=== PATIENT | female | born 1945 | race Caucasian/White ===

== ENCOUNTER 2016-05-04 22:56 | Inpatient (IN) | payer MEDICARE, OTHER ==
[~2016-05-04] VITALS: Ht 170.2 cm; Wt 84.7 kg
[2016-05-04 23:09] VITALS: BP 105/59; PULSE 94; RESP 18; O2SAT 97
[2016-05-05] VITALS (11 sets, daily range): BP systolic 89–112; BP diastolic 52–61; PULSE 78–102; RESP 16–19; O2SAT 90–98
--- NOTE | 2016-05-05 00:30 | ED.REPORT ---
HPI-General Illness Date of Service May 05, 2016 ED Provider: Skip Crowe MD The patient is a 70 year old female who presents to the ED complaining of an episode of shortness of breath which lasted 1.5 hours. Upon arrival to the ED, her shortness of breath has resolved. She states that two days ago she was carrying grocery bags when she felt pain in her left shoulder and neck which she believes may be related. She has a history of shoulder/neck pain and shoulder dislocation. She has no history of laryngospasm. Associated symptom of fatigue. She has family history of CAD and blood clots. She denies any other symptoms at this time. Nursing Notes Stated Complaint: NECK & SHOULDER PAIN Chief Complaint: General Complaint Nursing Notes Reviewed: Yes Allergies: Coded Allergies: Honey Bee (Verified Allergy, Unknown, 05/04/16) codeine (Verified Allergy, Unknown, 05/04/16) pollen extracts (Unverified Allergy, Unknown, 05/04/16) General Time Seen by MD: 00:18 Chief Complaint Other (shortness of breath) Hx Obtained From: Patient, Daughter Arrived By: Walk-in Sudden in Onset?: Yes Onset Occurred: 1 - 4 hours ago Symptom Duration: 1 - 4 hours Location: : Neck: Shoulder left Quality: Painful Severity: Current: Mild Severity: Maximum: Moderate Recent Healthcare: No recent doctor visit, No recent hospitalization Similar Sx Previous: No Past Medical History Past Medical History None reported Past Surgical History None reported Family History CAD Smoking History Never Smoker Social History Alcohol Use: Denies alcohol use Drug Use: Denies drug use Ambulatory Status Independent Review of Systems Full Review of Systems Constitutional: Reports: Fatigue, Denies: Chills, Fever Respiratory: Reports: Shortness of breath (resolved) Musculoskeletal: Reports: Joint pain (left shoulder), Neck pain, Denies: Back pain, Lumbar pain Complete sys rev & neg: except as marked. Physical Exam Vital Signs Vital Signs Date Time Temp Pulse Resp B/P Pulse Ox O2 Delivery O2 Flow Rate FiO2 05/05/16 05:11 78 17 95 Nasal Cannula 1.5 05/05/16 04:53 85 19 95 Room Air 05/05/16 03:51 89 17 112/54 94 Room Air 05/04/16 23:09 36.1 94 18 105/59 97 Room Air Initial VS: Reviewed, Vital signs normal Head / Eyes: Atraumatic, Normocephalic, PERRL ENT: Mucous membranes moist, Conjunctiva normal, No scleral icterus Neck: Supple, Non-tender, Full range of motion Respiratory: Breath sounds normal, Clear to auscultation, No respiratory distress Cardiovascular: Regular rate & rhythm, Heart sounds normal, Intact distal pulses Abdomen / GI: Soft, Non-tender, No guarding, No rebound, No distention Back: No CVA tenderness Skin: Warm, Dry, No cyanosis Neurologic: Alert, Oriented, Nonfocal Psychiatric: Mood/affect normal, Behavior normal, Normal thought content General/Constitutional: Awake, Alert, No acute distress Upper Extremities Upper Extremity / MS: Atraumatic Left biceps tendon and shoulder tender to palpation/manipulation Right shoulder non-tender, atraumatic Lower Extremity / Pelvis / MS: Atraumatic, Inspection NL, Full range of motion , No swelling, Non-tender, No erythema, Neurologic intact, Vascular intact Interpretation & Diagnostics Lab Results Interpretation Result Diagram: 05/05/16 0123 05/05/16 0123 Test 05/05/16 01:23 White Blood Count 9.0th/mm3 (3.8-10.1) Red Blood Count 2.92mil/mm3 (3.90-5.20) Hemoglobin 8.9g/dL (12.0-15.6) Hematocrit 26.5% (35.0-46.0) Mean Corpuscular Volume 90.8fL (81-100) Mean Corpuscular Hemoglobin 30.5pg (27.0-35.0) Mean Corpuscular Hemoglobin Concent 33.6% (32.0-37.0) Red Cell Distribution Width 12.8% (12.3-15.4) Platelet Count 209bil/L (150-400) Neutrophils (%) (Auto) 66.1% (40-74) Lymphocytes (%) (Auto) 25.6% (14-46) Monocytes (%) (Auto) 7.4% (4-12) Eosinophils (%) (Auto) 0.4% (0-5) Basophils (%) (Auto) 0.3% (0-3) D-Dimer 0.8mg/L (<0.50) Sodium Level 126mEq/L (134-144) Potassium Level 4.5mEq/L (3.5-5.2) Chloride Level 92mEq/L (97-108) Carbon Dioxide Level 19mmol/L (18-29) Blood Urea Nitrogen 15mg/dL (8-27) Creatinine 0.50mg/dL (0.57-1.00) Estimat Glomerular Filtration Rate 175mL/min (>59) Glucose Level 110mg/dL (60-99) Calcium Level 8.6mg/dL (8.5-10.1) Magnesium Level 1.8mg/dL (1.6-2.6) Total Bilirubin 0.2mg/dL (0.0-1.2) Aspartate Amino Transf (AST/SGOT) 19U/L (0-50) Alanine Aminotransferase (ALT/SGPT) 14U/L (0-32) Alkaline Phosphatase 81U/L (25-165) Troponin T 0.010ug/L (0.0-0.011) Total Protein 6.0g/dL (6.4-8.4) Albumin 3.5g/dL (3.4-5.0) Hold Herman Top Tube Received (Received) Lab Results Interpretation: Anemia of uncertain etiology, no comparison available ECG Interpretation ECG Interpretation: Sius rhythm with rate 88 Borderline prolonged [place] interbal LVH with secondary repolarization abnormality Inferior infarct, old Probably anterior infarct, old Time: 23:33 Interpreted by: ED physician X-Ray Chest Interpretation Chest Xray Interpretation: Likely multifocal pneumonia View: AP & lat Interpretation / Wet Read by: Wet read ED physician X-Ray Interpretation Xray Interpretation: Some osteoporosis, otherwise normal X-Ray Ordered: Shoulder left Interpretation / Wet Read by: Wet read ED physician CT Chest Interpretation IMPRESSION: No pulmonary emboli identified. No aorta dissection evident. Focal pulmonary opacity at the left upper lobe/lingula junction. This could represent neoplasm or focal pneumonia and followup is recommended. Parabronchial thickening with endobronchial occlusion/chronic predominantly lower lobes. This is likely secondary to bronchitis. Endobronchial neoplasm not excluded. Findings suggesting congestive heart failure with mild pulmonary edema. Study type: CT pulm angiogram Interpretation / Wet Read by: Interpret - Radiologist Re-Eval/Medical Decision Med Decision/Clinical Course 70-year-old female with shortness of breath found to have left-sided pneumonia and possible mild CHF. There is also some concern on the CT scan for neoplastic process. She was given azithromycin and Rocephin. She had some desaturations down as low as 89%. She is also found to be anemic with a hematocrit of 26.5. I have no old value for comparison. Case was discussed with Dr. Quinteros the patient will be placed on the hospitalist service. Source of Hx: Old records Time of Eval: 01:11 Re-Evaluation/Progress Note: Rechecked the patient who reports that she has started feeling better. Discussed imaging results. Time of Eval: 03:17 Re-Evaluation/Progress Note: Rechecked the patient to discuss lab results. The patient denies history of anemia. Discussed elevated D-Dimer and plan to CT her chest to rule out PE. The patient understands and agrees to the plan. All questions addressed. Time of Eval: 06:04 Re-Evaluation/Progress Note: Rechecked the patient. Discussed diagnosis and plan for discharge. Follow-up instructions and RTER warnings given. The patient understands and agrees to the plan. All questions addressed. Counseled Regarding: Diagnosis, Lab results, Need for admission, Other (imaging ) Discharge & Departure Primary Impression: Pneumonia Pneumonia type: due to unspecified organism Laterality: left Lung location : unspecified part of lung Qualified Code: J18.9 - Pneumonia, unspecified organism Additional Impression: CHF (congestive heart failure) Congestive heart failure type: unspecified congestive heart failure type Congestive heart failure chronicity: unspecified congestive heart failure chronicity Qualified Code: I50.9 - Heart failure, unspecified Disposition: Home Discharge Condition All VS Reviewed: Yes Condition: Stable Referrals: Laney Barrett (PCP) Pawan Attestation Portions of this note were transcribed by Allan Arroyo. I, Dr. Crowe, personally performed the history, physical exam and medical decision-making; I reviewed and confirmed the accuracy of the information in the transcribed note. Signed by: Pawan Hyatt, 05/05/16 06:04. copies to: Laney Barrett Howard L MD May 05, 2016 00:30 ALLAN ARROYO May 05, 2016 00:35
[2016-05-05] MEDS ORDERED: 0.9% Sodium Chloride 1,000 ML IV ONE (01:13)
[2016-05-05] MEDS ORDERED: Azithromycin Inj 500 MG in Dextrose 5% w/Vial Mate 250 ML IV ONE (01:15)
[2016-05-05] MEDS ORDERED: cefTRIAXone Inj 2,000 MG in IV Premix 1 EACH IV ONE (01:15)
[2016-05-05 01:33] LABS: BASOPHILS % (AUTO) 0.3 % (0-3); EOSINOPHILS % (AUTO) 0.4 % (0-5); MONOCYTES % (AUTO) 7.4 % (4-12); Mean Corpuscular Hemoglobin 30.5 pg (27.0-35.0); Mean Corpuscular Volume 90.8 fL (81-100); NEUTROPHILS % (AUTO) 66.1 % (40-74); Platelet Count 209 bil/L (150-400)
[2016-05-05 02:51] LABS: TROPONIN T 0.01 ug/L (0.0-0.011)
[2016-05-05 02:56] LABS: Magnesium 1.8 mg/dL (1.6-2.6)
[2016-05-05] MEDS ORDERED: Albuterol-Ipratropium 3 mL Inhalation Solution NEB ONE (04:45)
[2016-05-05] MEDS ORDERED: Albuterol 2.5 mg/3 mL Inhalation Solution NEB ONE ×2 (05:04→05:05)
[2016-05-05] MEDS ORDERED: Dextrose 5% 0.45% NaCl 1,000 ML IV SCH (06:32)
[2016-05-05] MEDS ORDERED: Alum-Mag Hydrox-Simeth 30 mL Suspension PO PRN ×2 (06:35→10:25)
[2016-05-05] MEDS ORDERED: Ondansetron 2 mg/mL 2 mL Inj IVPUSH PRN (06:35)
[2016-05-05] MEDS ORDERED: LEVO25TA5 PO (08:05)
[2016-05-05] MEDS ORDERED: ASCO-375 PO (08:24)
[2016-05-05] MEDS ORDERED: PRA20 PO (08:24)
[2016-05-05] MEDS ORDERED: MULT-1018 PO (08:24)
[2016-05-05] MEDS ORDERED: WHEA98PO PO (08:24)
--- NOTE | 2016-05-05 08:34 | DRSVH ---
PROCEDURE: X-RAY CHEST, TWO VIEWS ([id number]) INDICATIONS: SOB TECHNIQUE: 2 views of the chest were acquired. COMPARISON: [facility], , CHEST 2VW, 12/06/2011, 16:09. FINDINGS: Surgical changes and devices: None. Lungs and pleura: Prominent increased interstitial markings are present with prominent vasculature an d missy. Mild thickening of the major fissure is present in the lateral view of the chest. Mediastinum: Mediastinal contours are normal. Heart size is normal. Bones and chest wall: No suspicious bony abnormalities. Soft tissues appear unremarkable. IMPRESSION: Early interstitial pulmonary edema is thought to be present. No focal consolidation mila red to previous films of 12/06/11. Slightly prominent area of markings at the level of left hilum but in the left midlung field are thought to be unchanged dental x-rays. Dictated by: Jack Rene M.D. on 05/05/2016 at 8:32 Approved by: Jack Rene M.D. on 05/05/2016 at 8:32
--- NOTE | 2016-05-05 08:34 | DRSVH ---
PROCEDURE: X-RAY LEFT SHOULDER, MINIMUM TWO VIEWS ([id number]) INDICATIONS: pain TECHNIQUE: 2 views of the shoulder were acquired. COMPARISON: None. FINDINGS: Bones: No fractures or dislocations. No suspicious bony lesions. Visualized ribs appear intact. M ild to moderate degenerative change in the a.c. joint with some inferior bony spurring is present. Soft tissues: No suspicious soft tissue calcifications. IMPRESSION: No acute abnormality is appreciated in these 2 views of the left shoulder Dictated by: Jack Rene M.D. on 05/05/2016 at 8:33 Approved by: Jack Rene M.D. on 05/05/2016 at 8:33
[2016-05-05] MEDS ORDERED: Influenza (Adult) Vaccine 0.5 mL Syringe IM ONE (08:40)
--- NOTE | 2016-05-05 09:03 | NUR ---
ADMIT Patient received from the ED. Admit done by Yamilet Nicholas RN. Oriented to room call light and bathroom.
--- NOTE | 2016-05-05 09:09 | DRSVH ---
PROCEDURE: CT ANGIO CHEST PULMONARY EMBOLISM ([id number]) INDICATIONS: short of breath, elev dimer TECHNIQUE: After the administration of intravenous contrast, 2 mm thick sections acquired from the pulmonary api love to the posterior costophrenic angles. 3-dimensional maximum intensity projection (MIP) coronal a nd sagittal reformats were then acquired through the thorax. For radiation dose reduction, the follo wing was used: automated exposure control, adjustment of mA and/or kV according to patient size. COMPARISON: [facility], CR, XR CHEST 2VW, 05/05/2016, 0:55. FINDINGS: Image quality: Excellent. Pulmonary arteries: Pulmonary arteries are normal in size, and demonstrate no intraluminal filling d efects to suggest central pulmonary embolism. Lungs and pleura: Lungs show prominent increased interstitial markings. There is some patchy density consistent with consolidation involving a portion of the lingula of the left lung.. No pleural effus ions or pneumothorax. Central and peripheral airways are patent. Mediastinum: Heart size is normal, without pericardial effusion. No mediastinal or hilar adenopathy . Thoracic aorta is normal in caliber and enhancement. Esophagus is normal in caliber, without hiat al hernia. Bones and chest wall: No suspicious bony lesions. Ribs and thoracic spine appear intact throughout. Thyroid gland suggests a 14 mm nodule in the right lobe. No axillary or supraclavicular adenopathy . Abdomen: Visualized upper abdominal solid organs appear normal in the early arterial phase of enhanc ement. IMPRESSION: Interstitial process is occurring. Early interstitial pulmonary edema is most likely. Heart size is normal. No effusion is seen. Is there any evidence to suggest drug reaction or allergic reaction? No evidence for pulmonary embolus. There is some density thought to be airspace disease involving a portion of the lingula is present gardner ggesting some pneumonia as well. Followup to clearing of this would be useful. A CT scan in several months to rule out underlying tumo r would be useful. Dictated by: Jack Rene M.D. on 05/05/2016 at 9:08 this report corresponds to the findings of e preliminary NSR report. Approved by: Jack Rene M.D. on 05/05/2016 at 9:08
--- NOTE | 2016-05-05 09:15 | NUR ---
CHEST PAIN/MD NOTIFICATION Patient complained of chest pain. Sternal area. Non-radiating. She is also complaining of L shoulder pain. Denies nausea. SOB with exertion. HR-100's; SBP-90's. STAT EKG done. No significant change from her previous EKG. Dr. Rdz made aware. Per MD he will assess patient. Will continue to monitor. Addendum: 05/05/16 at 1608 by MARTIN GUZMAN RN [phone] re-paged.
[2016-05-05] MEDS ORDERED: Polyethylene Glycol (PEG) 17 Gm Powder PO PRN (10:25)
[2016-05-05] MEDS ORDERED: Ketorolac 15 mg/mL Inj IVPUSH PRN (10:35)
--- NOTE | 2016-05-05 11:28 | PCM.HPMED ---
Subjective Date of Service May 05, 2016 Primary Provider: Admitting Physician: Esme Quinteros MD Primary Care Physician: Laney Barrett Attending Physician: Esme Quinteros MD Admit Status: From the Emergency Department, Admit to Red Team Chief Complaint: 70-year-old woman with history of tobacco use, but no cardiac or respiratory disease, presents with acute shortness of breath, cough and orthopnea History of Present Illness: The patient was in her usual state of health, fully capable of her own ADLs. Two days prior to admission she experienced experienced acute left shoulder pain when lifting heavy bags of groceries. She took aspirin and ibuprofen with mild relief. On she awakened from a nap in the afternoon feeling acutely short of breath. Describes labored breathing without significant chest pain. She endorses orthopnea. She denies change in her mild chronic pedal edema. After presentation to the emergency room and she began to notice a cough minimally productive of white phlegm. She describes no recent respiratory infectious exposures. She has not had influenza vaccination. She has felt cold over the past couple days but no fevers or shaking chills. She endorses sweating episodes. She endorses pain in left shoulder with movement. No other musculoskeletal pain. Review of Systems: 11 system ROS was performed significant findings are noted in the history of present illness and PMH. Incidental note is made of a chronic benign tremor. Allergies Coded Allergies: Honey Bee (Verified Allergy, Intermediate, Swelling and hives, 05/05/16) codeine (Verified Allergy, Intermediate, Light sensitivity, 05/05/16) pollen extracts (Unverified Allergy, Intermediate, Hives, 05/05/16) Home Medications Levothyroxine 25 g per day Pravastatin B vitamins PMH # Hypothyroidism # Hyperlipidemia # Tobacco use - 48 years 0.5-1 pack per day Family History No immunodeficiency or infectious syndromes. Social History Occupation: retired homemaker Hx Alcohol Use: No Hx Substance Use: No Smoking Status: Never Smoker Living Arrangement: Alone (daughter lives in [place]) Additional Information Fully independent and active with housecleaning, shopping, etc. No exercise program. Exam Vital Signs Vital Sign - Last Date Time Temp Pulse Resp B/P Pulse Ox O2 Delivery O2 Flow Rate FiO2 05/05/16 09:03 102 16 93/53 95 Room Air 05/05/16 07:47 36.3 05/05/16 07:26 1.5 Intake and Output 05/04/16 05/04/16 05/05/16 Cumulative From/Thru 15:00 23:00 07:00 05/04/16 23:09 - 05/05/16 02:04 Intake Total 1000 ml 1000 ml Balance 1000 ml 1000 ml Intake IV Total 1000 ml 1000 ml Exam Constitutional: Elderly woman appears slightly dysphoric; no acute distress; vital signs noted Eyes: sclerae anicteric, no conjunctival pallor, ENMT: ears, nose atraumatic; oral mucosa is moist Neck: supple, JVD absent, no significant goiter Chest: symmetric, no pain or lesions, left shoulder with mild discomfort on range of motion Resp: auscultation: Faint diffuse wheezes, no focal rales or dullness, no egophony or fremitus Cardiac: S1, S2, regular, II/ EDGAR at RUSB murmur Abdomen: bowel sounds present, nontender, no organomegaly Musculoskeletal: no joints with acute erythema, swelling Skin and soft tissues: no rash; 1+ pitting edema Lymphatic: no adenopathy cervical Neurological: Cranial Nerves - face symmetric Reflexes - BJ, KJ symmetric reduced Motor - 5/5 strength, normal tone Coordination - normal movement, mild resting tremor Sensory - light touch intact Psych & Mental Status - oriented Lab and Diagnostics Labs D-dimer 0.8 Troponin T normal Result Diagram: 05/05/1612205/05/16 012 Microbiology Influenza screen negative Blood cultures pending X-Rays, CTs and MRIs PROCEDURE: CT ANGIO CHEST PULMONARY EMBOLISM ([id number]) INDICATIONS: short of breath, elev dimer FINDINGS: Image quality: Excellent. Lungs and pleura: Lungs show prominent increased interstitial markings. There is some patchy density consistent with consolidation involving a portion of the lingula of the left lung.. No pleural effusions or pneumothorax. Central and peripheral airways are patent. IMPRESSION: Interstitial process is occurring. Early interstitial pulmonary edema is most likely. Heart size is normal. No effusion is seen. Is there any evidence to suggest drug reaction or allergic reaction? There is some density thought to be airspace disease involving a portion of the lingula is present suggesting some pneumonia as well. Followup to clearing of this would be useful. A CT scan in several months to rule out underlying tumor would be useful. Dictated by: Jack Rene M.D. on 05/05/2016 at 9:08 this report corresponds to the findings of the preliminary NSR report. . 12-lead ECG Sinus rhythm rate 90, QTC 450, inferior Q waves, lateral repolarization abnormality V4-V6, LVH Assessment & Plan 70-year-old woman presents with acute shortness of breath with orthopnea, cough and interstitial pulmonary edema after an episode of apparently musculoskeletal left shoulder pain. Acute, active or high risk problems: # Community-acquired pneumonia. Symptoms of dyspnea, cough, sweating and possible chills along with left lingular radiologic opacity support diagnosis of possible-probable pneumonia. On admission she has normal white blood cell count and no fever. - Continue azithromycin plus ceftriaxone at present - Check pro calcitonin # Acute diastolic CHF. Orthopnea, wheezing and pedal edema suggest acute CHF. Electrocardiogram suggests past coronary artery disease. Heart murmur is compatible with aortic stenosis. Diastolic CHF likely exacerbated by acute lower respiratory infection. Less likely this is initial presentation of COPD. - Oxygen supplement as needed - Furosemide - Bronchodilators - Complete echocardiogram # Hyponatremia. History does not suggest hypovolemic hyponatremia problem. Possible SIADH due to pulmonary process. - Check urine osmolality - IV hydration with isotonic fluids only. # Tobacco dependence. Ventilation was counseled by Bartolome regarding health benefits of cessation. - Nicotine patch # Left lingular radiopacity. Lung cancer is in differential. - Plan follow-up repeat lung imaging after treatment for acute pneumonia and heart failure # Left shoulder musculoskeletal pain. Clinical exam does not suggest fracture or dislocation. - Nonpharmacologic treatments - Low-dose ketorolac as needed Stable, chronic problems: # Hypothyroidism - continue levothyroxine at usual dose. # Hyperlipidemia # Essential tremor Pain Evaluation: Pain not Controlled VTE Prophylaxis: Sub-Q Enoxaparin Resuscitation Status: CPR: Attempt Resuscitation Time spent 70 minutes Rip Rdz MD May 05, 2016 11:27
[2016-05-05] MEDS: Furosemide 10 mg/mL 2 mL Inj IVPUSH SCH (11:42)
[2016-05-05] MEDS: Albuterol-Ipratropium 3 mL Inhalation Solution NEB PRN (11:44)
--- NOTE | 2016-05-05 14:30 | NUR ---
CRITICAL LAB/CARE Patient denies chest pain at this time. On O2 at 2 LPM via NC. Denies nausea. No emesis noted. Patient has troponin of 0.046. Dr. Rdz paged. Waiting for call back. Car endorsed to Yamilet Olivas RN.
[2016-05-05 14:31] LABS: TROPONIN T 0.046 ug/L (0.0-0.011)
[2016-05-05] MEDS ORDERED: Heparin 5,000 Unit/mL Inj IVPUSH PRN ×2 (14:45→15:10)
[2016-05-05] MEDS ORDERED: Heparin 25K Unit/500mL 0.45 NS 25,000 UNIT in IV Premix 1 EACH IV SCH ×2 (14:45→15:10)
--- NOTE | 2016-05-05 14:47 | NUR ---
Social Work: Initial Assessment: Data & Assessment: EMR Reviewed. See Initial Assessment. Manager Ship met with patient and patient's daughter at bedside to complete initial assessment, review social work role and discharge planning discussed. Patient was alert and oriented x3. Patient was independent with ADL's prior to admissions. Patient's PCP is STACY Zuleta and patient's insurance is [employer] primary and Medicare secondary. Patient does not have a re-admit score yet. Patient does not have any LTC insurance or VA benefits. Patient does not have any SNF or HH history. Patient lives alone in a single level home with seven steps to enter. Patient does not have any identified social Work need at the current time. Patient will discharge ome when medically stable. SW will contnue to follow. Plan: Patient will discharge home in POV when medically stable. floorworker lasting will continue to follow. Alyce Wood LMSW, BRITTANY Addendum: 05/05/16 at 1504 by ALYCE WOOD Amended: Links added.
[2016-05-05] MEDS ORDERED: Heparin Initial Bolus IVPUSH ONE (15:05)
[2016-05-05] MEDS ORDERED: Heparin Protocol Boluses IVPUSH PRN (15:05)
[2016-05-05 16:25] LABS: APPEARANCE,URINE CLEAR (CLEAR,HAZY); COLOR,URINE YELLOW (YELLOW); OCCULT BLOOD,URINE TRACE (NEGATIVE); OSMOLALITY, URINE 330 mOs/kH2O (250-1200); UROBILINOGEN,URINE NORMAL (NORMAL)
[2016-05-05] MEDS: Ondansetron 2 mg/mL 2 mL Inj IVPUSH PRN ×2 (19:10→20:37)
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
[2016-05-05] MEDS ORDERED: 0.9% Sodium Chloride 250 ML ONE (22:03)
[2016-05-05] MEDS: Promethazine Inj 12.5 MG in 0.9% Sodium Chloride 50 ML IV PRN (22:17)
--- NOTE | 2016-05-05 22:55 | NUR ---
Heparin gtt Pt ptt value was 102 at 2200, per eMAR orders heparin gtt stopped for 30 min and then decreased by 100 units. Heparin gtt now at 900 units/hr. Addendum: 05/06/16 at 0420 by AMITA LUX RN Heparin gtt At 0312, ptt value was 64, per eMAR orders no change in heparin gtt rate, continues at 900 units/hr.
--- NOTE | 2016-05-05 23:30 | NUR ---
Nausea Pt having persistent nausea and vomited x2, emesis appears to be undigested food. Zofran 4mg given x2 with no relief. paged and ordered IV Phenergan. Pt now reporting relief of nausea.
[2016-05-06] VITALS (10 sets, daily range): BP systolic 94–118; BP diastolic 51–70; PULSE 88–102; RESP 18–22; O2SAT 92–98
--- NOTE | 2016-05-06 04:20 | NUR ---
Troponin Troponin level critical at 0.202, paged with new critical result at 0216. No new orders at this time. Pt continues on cardiac heparin drip and existing order for another troponin lab at 0830. Pt sleeping in chair at this time and appears comfortable.
[2016-05-06 06:56] LABS: Mean Corpuscular Hemoglobin 30.1 pg (27.0-35.0)
[2016-05-06] MEDS: Furosemide 10 mg/mL 2 mL Inj IVPUSH SCH (10:54)
[2016-05-06] MEDS ORDERED: 0.9% Sodium Chloride 250 ML ONE ×2 (11:43→22:37)
[2016-05-06] MEDS: cefTRIAXone Inj 2,000 MG in IV Premix 1 EACH IV SCH (11:49)
--- NOTE | 2016-05-06 12:42 | DRSVH ---
[facility] [address] [place] [address] Echocardiogram Report Name: KENZIE RAMIREZ MStudy Date : 05/06/2016 Height: 67 in Hospital Exam Location: [facility] Weight: 175 lb Gender: Female BSA: 1.9 m2 : 1945 Age: 70 yrs BP: 100/57 mmHg Reason For Study: CHF, MURMUR Ordering Physician: HOSPITALIST BARNEYHPerformed By: Kana Buitrago Referring Physician: Abdoulaye OBRIEN Interpretation Summary The left ventricle is normal in size. Left ventricular systolic function is mildly reduced. Left ventricular ejection fraction is estimated to be 45%. There appears moderate hypokinesis along the mid/distal septum and there is presence of mild global hypokinesis. The right ventricle is normal in size and function. The right ventricular systolic pressure is estimated at 43 mmHg assuming a right atrial pressure of 8 mm Hg. The left atrium is severely dilated. Right atrial size is normal. There is moderate to severe mitral regurgitation. The aortic valve is not well visualized. The aortic valve is severely calcified. The peak aortic velocity is 5.19 m/sec. The aortic valve mean gradient is 68.8 mmHg. The calculated aortic valve area is 0.68 cm2. There is critically severe aortic stenosis. There is moderate to severe aortic regurgitation. There is mild to moderate tricuspid regurgitation. The ascending aorta is mildly enlarged. Procedure: A two-dimensional transthoracic echocardiogram with color flow and Doppler was performed. The study quality was technically good. There is no prior echocardiogram noted for this patient. The patient was in normal sinus rhythm during the exam. The patient was tachycardic with a heart rate of 91-122 beats per minute. Left Ventricle: The left ventricle is normal in size. There is normal left ventricular wall thickness. Left ventricular systolic function is mildly reduced. Left ventricular ejection fraction is estimated to be 45%. There appears moderate hypokinesis along the mid/distal septum and there is presence of mild global hypokinesis. Right Ventricle: The right ventricle is normal in size and function. Atria: The left atrium is severely dilated. Right atrial size is normal. The interatrial septum is intact with no evidence for an atrial septal defect. Mitral Valve: There is moderate mitral annular calcification. The mitral valve leaflets are mildly calcified. There is moderate to severe mitral regurgitation. Aortic Valve: The aortic valve is not well visualized. The aortic valve is severely calcified. The peak aortic velocity is 5.19 m/sec. The aortic valve mean gradient is 68.8 mmHg. The calculated aortic valve area is 0.68 cm2. There is critically severe aortic stenosis. There is moderate to severe aortic regurgitation. There is prominent holodiastolic flow reversal in the descending thoracic aorta. Tricuspid Valve: The tricuspid valve is normal in structure and function. There is mild to moderate tricuspid regurgitation. The right ventricular systolic pressure is estimated at 43 mmHg assuming a right atrial pressure of 8 mm Hg. Pulmonic Valve: The pulmonic valve is normal in structure and function. There is trace pulmonic regurgitation. Great Vessels: The aortic root is normal size. The ascending aorta is mildly enlarged. The pulmonary artery is normal size. The IVC is of normal diameter and collapses less than 50% with a sniff. This suggests a right atrial pressure of 8 mm Hg. Pericardium/ Pleura There is no pericardial effusion. There is no pleural effusion. MMode/2D Measurements & Calculations LVIDd: 5.5 cm LA dimension: 4.7 cm RA long axis: 4.6 cm LVOT diam LVIDs: 4.3 cm FS: 22.5 % LA A2 area: 28.5 cm RA area: 16.3 cm Ao root diam EPSS: 0.74 cm LA A4 area: 23.2 cm RA vol: 48.5 ml IVSd: 0.88 cm LA length (vol): 6.1 cm RA : 25.4 ml/m2 Aortic Jxn LVPWd: 1.0 cm LA vol: 92.3 ml asc Aorta LA vol index: 48.3 ml/m Diam: 3.6 cm IVC diam: 1.9 cm EDV(MOD-sp2) LV patrick. diameter/BSA LV sys. diameter/BSA : 106.1 ml (cm/m^2): 2.9 (cm/m^2): 2.2 Doppler Measurements & Calculations Ao V2 max: 519.4 cm/secMV E max carter MV E/A: 84.3 TR max carter Ao max P.9 mmHg : 186.5 cm/sec Med Peak E' Carter : 296.5 cm/sec Ao mean P.8 mmHg MV A max carter TR max PG LVOT Max Carter E/E' med: 26.2 : 35.2 mmHg : 87.4 cm/sec Lat Peak E' Carter PA V2 max MVA(VTI): 3.1 cm2 : 80.7 cm/sec KAN(I,D): 0.68 cm E/E' lat: 29.1 PA mean PG sev ratio: 0.19 AI P1/2t: 128.5 msec PA Accel Time AI dec slope : 0.10 sec : 892.9 cm/s2c MV V2 mean Ao V2 mean LV V1 max PG PA V2 mean : 122.3 cm/sec : 402.2 cm/sec : 67.4 cm/sec MV mean P.4 mmHg Ao V2 VTI LV V1 VTI PA pr(Accel) MV V2 VTI: 24.4 cm : 111.5 cm : 20.7 cm : 36.6 mmHg MV dec time: 0.10 sec KAN(V,D): 0.62 cm2 KAN indexed to BSA E/e' average (cm^2/m^2): 0.36 : 27.7 Reading Physician:AUSTIN
--- NOTE | 2016-05-06 15:56 | PCM.PNMED ---
Subjective Date of Service May 06, 2016 Subjective Pt seen and examined. Patient has no complaints at the moment and is resting comfortably. Patient was seen to have lower sodium levels than what was recorded prior. Will continue to trend. Exam Vital Signs Vital Sign - Last Date Time Temp Pulse Resp B/P Pulse Ox O2 Delivery O2 Flow Rate FiO2 05/06/16 13:59 36.5 99 22 103/62 94 Nasal Cannula 2.00 Intake and Output 05/05/16 05/05/16 05/06/16 Cumulative From/Thru 15:00 23:00 07:00 05/04/16 23:09 - 05/06/16 06:25 Intake Total 236 ml 650 ml 805 ml 2691 ml Output Total 700 ml 850 ml 1550 ml Balance 236 ml -50 ml -45 ml 1141 ml Intake Oral 600 ml 750 ml 1350 ml IV Total 236 ml 50 ml 55 ml 1341 ml Output Urine Total 700 ml 750 ml 1450 ml Emesis 100 ml 100 ml # Bowel Movements 1 1 Lab and Diagnostics Result Diagram: 05/06/16 0605 05/06/16 0841 Microbiology Influenza screen negative Blood cultures pending X-Rays, CTs and MRIs PROCEDURE: CT ANGIO CHEST PULMONARY EMBOLISM ([id number]) INDICATIONS: short of breath, elev dimer FINDINGS: Image quality: Excellent. Lungs and pleura: Lungs show prominent increased interstitial markings. There is some patchy density consistent with consolidation involving a portion of the lingula of the left lung.. No pleural effusions or pneumothorax. Central and peripheral airways are patent. IMPRESSION: Interstitial process is occurring. Early interstitial pulmonary edema is most likely. Heart size is normal. No effusion is seen. Is there any evidence to suggest drug reaction or allergic reaction? There is some density thought to be airspace disease involving a portion of the lingula is present suggesting some pneumonia as well. Followup to clearing of this would be useful. A CT scan in several months to rule out underlying tumor would be useful. Dictated by: Jack Rene M.D. on 05/05/2016 at 9:08 this report corresponds to the findings of the preliminary NSR report. . 12-lead ECG Sinus rhythm rate 90, QTC 450, inferior Q waves, lateral repolarization abnormality V4-V6, LVH Assessment & Plan 70-year-old woman presents with acute shortness of breath with orthopnea, cough and interstitial pulmonary edema after an episode of apparently musculoskeletal left shoulder pain. Acute, active or high risk problems: # Community-acquired pneumonia. Symptoms of dyspnea, cough, sweating and possible chills along with left lingular radiologic opacity support diagnosis of possible-probable pneumonia. On admission she has normal white blood cell count and no fever. - Continue azithromycin plus ceftriaxone at present - Check pro calcitonin # Acute diastolic CHF. Orthopnea, wheezing and pedal edema suggest acute CHF. Electrocardiogram suggests past coronary artery disease. Heart murmur is compatible with aortic stenosis. Diastolic CHF likely exacerbated by acute lower respiratory infection. Less likely this is initial presentation of COPD. - Oxygen supplement as needed - Furosemide - Bronchodilators - Complete echocardiogram #NSTEMI - Pt has evidence of troponin elevation - as per cardiology pt placed on heparin drip, tanner, aspirin yesterday - Given lower gi bleed will hold heparin drip for the time being #Lower GI bleed - pt had an episode of dark bowel movement - will hold heparin drip and obtain cbc # Hyponatremia. History does not suggest hypovolemic hyponatremia problem. Possible SIADH due to pulmonary process. - Check urine osmolality - IV hydration with isotonic fluids only. # Tobacco dependence. Ventilation was counseled by Bartolome regarding health benefits of cessation. - Nicotine patch # Left lingular radiopacity. Lung cancer is in differential. - Plan follow-up repeat lung imaging after treatment for acute pneumonia and heart failure # Left shoulder musculoskeletal pain. Clinical exam does not suggest fracture or dislocation. - Nonpharmacologic treatments - Low-dose ketorolac as needed Stable, chronic problems: # Hypothyroidism - continue levothyroxine at usual dose. # Hyperlipidemia # Essential tremor VTE Prophylaxis: Sub-Q Enoxaparin Resuscitation Status: CPR: Attempt Resuscitation Joao Pulido MD May 06, 2016 15:56
--- NOTE | 2016-05-06 18:16 | NUR ---
Bleeding Heparin gtt running per protocol at 925 units/hr. At 1545, PTT 54.0 and pump increased to 950 units/hr. At this time pt had extra large tarry black stool, Guaiac positive. Heparin gtt stopped at this time and notified. At 1745 pt found to be having small amounts of epitaxis. Humidifier added to oxygen and paged, no other orders taken at that time. Addendum: 05/06/16 at 1825 by SADA LIMA RN CBC drawn, hemoglobin and hematocrit stable.
[2016-05-06 18:19] LABS: BASOPHILS % (AUTO) 0.1 % (0-3); EOSINOPHILS % (AUTO) 0.1 % (0-5); Mean Corpuscular Hemoglobin 30.8 pg (27.0-35.0); Mean Corpuscular Volume 89.1 fL (81-100); NEUTROPHILS % (AUTO) 77.7 % (40-74); Platelet Count 202 bil/L (150-400)
--- NOTE | 2016-05-06 20:41 | NUR ---
diaphoretic with ambulation patient diaphoretic and dizzy with ambulation to bathroom. arrived back to chair. bp 94/51. hr 100 patient refuses to use bed. only in recliner. ordered a foam bed but none available at this time. explained to patient.
--- NOTE | 2016-05-06 22:14 | NUR ---
anxiety patient increasingly anxious. trying to get oob. john alarm on . bed alarm on. shade up. lights on. found sitting at side of bed. called daughter . requested she come in for patient's increasing anxiety. daughter vandana agreed.
[2016-05-07] VITALS (17 sets, daily range): BP systolic 90–180; BP diastolic 42–90; PULSE 83–120; RESP 19–25; O2SAT 90–100
[2016-05-07] MEDS: Albuterol-Ipratropium 3 mL Inhalation Solution NEB PRN (00:01)
--- NOTE | 2016-05-07 00:07 | NUR ---
shortness of breath patient with dyspnea. states "i can't breathe." lungs have inspiratory wheezes throughout placed on oxymask 3 liters. hob at 45 degrees on 2 pillows. repositioned in bed. tight raspy cough. RT called for neb treatment. RT then informed me that her lungs sound "wet." notified Dr Quinteros. ordered lasix 40mg iv now. explained to daughter and patient. notified that patient is on bedrest for safety. plan to use bedpan. verbalized understanding.
[2016-05-07] MEDS ORDERED: Furosemide 10 mg/mL 4 mL Inj IVPUSH ONE ×2 (00:30→06:25)
--- NOTE | 2016-05-07 00:30 | NUR ---
anxiety increasing anxiousness. notified dr baca. ordered ativan 0.5mg po. plan to medicate. explained to patient and daughter Addendum: 05/07/16 at 0238 by JAJA SOSA RN medicated with ativan. patient now resting. decreased anxiety.
[2016-05-07] MEDS: LORazepam 0.5 mg Tablet PO PRN ×2 (00:42→23:49)
--- NOTE | 2016-05-07 02:38 | NUR ---
blood transfusion blood transfusion going well. first unit completed. running each unit slowly (100ml/hr). patient tolerating. vs stable. care ongoing.
--- NOTE | 2016-05-07 05:46 | NUR ---
chest discomfort c/o left apical chest discomfort. rates 8, hr 120. ordered stat ekg. called RT. care ongoing Addendum: 05/07/16 at 0618 by JAJA SOSA RN spoke to dr Quinteros. ordered abg now. ordered lasix 40mg now. orders sent.
--- NOTE | 2016-05-07 06:22 | ABG ---
DateTimeAnalyzed 06:21:00 -_ pH ____7.164 - 7.350 7.450 pCO2 ___74.6__ -mmHg 35.0 45.0 pO2 ___74.5__ -mmHg 69.0 116 HCO3- ___25.7__ -mmol/L 22.0 26.0 ABE ___-3.6__ -mmol/L -2.0 2.0 tHb ___10.5__ -g/dL O2Hb ___88.7__ -% COHb ____1.1__ -% MetHb ____1.1__ -% sO2 ___90.7__ -% FIO2 ___21.0__ -% Drawn By MD - Date/Time Notified____ 06:21:00 -_ Spontaneous_RR ___28.0__ -b/min Liter_Flow ____4.0__ -L/min Oxygen Device 1 __OXYMASK - Notified By MD - Notified Whom _RN CARLO - B 748 -mmHg tO2 ___13.2__ -Vol% Ramon test _Positive -
--- NOTE | 2016-05-07 06:40 | NUR ---
CARE UPDATE abg results to dr baca by rt. ordered bipap. bipap on patient. patient now fatigued opens eyes to voice. lasix given . Dr baca in to speak with patient and family. plan for dawson catheter and cxr. troponins. care ongoing. daughter verbalized understanding. vinicio beltrán [facility] charge updated. to status.
[2016-05-07] MEDS ORDERED: Nitroglycerin 2% 1 Gm Ointment TOPICAL ONE (06:45)
--- NOTE | 2016-05-07 06:58 | PCM.PNMED ---
Subjective Date of Service May 07, 2016 Subjective Asked to see patient for incresaing respiratory distress. Pt noted to be sleeping and got up to use bathroom and then was noticed to have increased shortness of breath with some substernal chest pain. ABG was obtained which revealed respiratory acidosis. Of note pt received 2 units of pRBCs overnight as ordered by manager company,Dr. Mena overnight. Exam Vital Signs Vital Sign - Last Date Time Temp Pulse Resp B/P Pulse Ox O2 Delivery O2 Flow Rate FiO2 05/07/16 06:31 116 20 98 40 05/07/16 06:00 36.2 180/90 OxyMask 4.00 Intake and Output 05/06/16 05/06/16 05/07/16 Cumulative From/Thru 15:00 23:00 07:00 05/04/16 23:09 - 05/07/16 06:28 Intake Total 1474 ml 815 ml 4980 ml Output Total 690 ml 1200 ml 3440 ml Balance 784 ml -385 ml 1540 ml Intake Oral 1100 ml 100 ml 2550 ml IV Total 374 ml 75 ml 1790 ml Packed Cells 640 ml 640 ml Output Urine Total 690 ml 900 ml 3040 ml Urine/Stool Mix 300 ml 300 ml Emesis 100 ml # Voids 1 1 # Bowel Movements 1 Exam Chest: Some rhonchi noted diffusely COR: RRR,S1,S2 Abd: soft ,NT BS + Ext: 1 + lower extremity edema Neuro: Drowsy but is oriented x 3 Lab and Diagnostics Result Diagram: 05/06/16 1810 05/06/16 1922 Microbiology Influenza screen negative Blood cultures pending X-Rays, CTs and MRIs PROCEDURE: CT ANGIO CHEST PULMONARY EMBOLISM ([id number]) INDICATIONS: short of breath, elev dimer FINDINGS: Image quality: Excellent. Lungs and pleura: Lungs show prominent increased interstitial markings. There is some patchy density consistent with consolidation involving a portion of the lingula of the left lung.. No pleural effusions or pneumothorax. Central and peripheral airways are patent. IMPRESSION: Interstitial process is occurring. Early interstitial pulmonary edema is most likely. Heart size is normal. No effusion is seen. Is there any evidence to suggest drug reaction or allergic reaction? There is some density thought to be airspace disease involving a portion of the lingula is present suggesting some pneumonia as well. Followup to clearing of this would be useful. A CT scan in several months to rule out underlying tumor would be useful. Dictated by: Jack Rene M.D. on 05/05/2016 at 9:08 this report corresponds to the findings of the preliminary NSR report. . 12-lead ECG Sinus rhythm rate 90, QTC 450, inferior Q waves, lateral repolarization abnormality V4-V6, LVH Assessment & Plan 70-year-old woman presents with acute shortness of breath with orthopnea, cough and interstitial pulmonary edema after an episode of apparently musculoskeletal left shoulder pain. Acute, active or high risk problems: # Community-acquired pneumonia. Symptoms of dyspnea, cough, sweating and possible chills along with left lingular radiologic opacity support diagnosis of possible-probable pneumonia. On admission she has normal white blood cell count and no fever. - Continue azithromycin plus ceftriaxone at present - Check pro calcitonin # Acute diastolic CHF. Orthopnea, wheezing and pedal edema suggest acute CHF. Electrocardiogram suggests past coronary artery disease. Heart murmur is compatible with aortic stenosis. Diastolic CHF likely exacerbated by acute lower respiratory infection. Less likely this is initial presentation of COPD. - Oxygen supplement as needed - Furosemide - Bronchodilators - Complete echocardiogram #NSTEMI - Pt has evidence of troponin elevation - as per cardiology pt placed on heparin drip, tanner, aspirin yesterday - Given lower gi bleed will hold heparin drip for the time being #Lower GI bleed - pt had an episode of dark bowel movement - will hold heparin drip and obtain cbc # Hyponatremia. History does not suggest hypovolemic hyponatremia problem. Possible SIADH due to pulmonary process. - Check urine osmolality - IV hydration with isotonic fluids only. # Tobacco dependence. Ventilation was counseled by Bartolome regarding health benefits of cessation. - Nicotine patch # Left lingular radiopacity. Lung cancer is in differential. - Plan follow-up repeat lung imaging after treatment for acute pneumonia and heart failure # Left shoulder musculoskeletal pain. Clinical exam does not suggest fracture or dislocation. - Nonpharmacologic treatments - Low-dose ketorolac as needed Stable, chronic problems: # Hypothyroidism - continue levothyroxine at usual dose. # Hyperlipidemia # Essential tremor Assessment and Plan: Acute on chronic respiratory failure with hypercapnea Place on Bipap protocol Recheck ABG in 20-30 min. Maybe pulmonary edema with transfusion of 2 units pRBCS so: Lasix iv 40 mg NTP 1 " top now Check stat portable CXR Serial troponins 12 lead EKG now VTE Prophylaxis: Sub-Q Enoxaparin Resuscitation Status: CPR: Attempt Resuscitation Time spent Critical care time spent is 45 minutes Esme Quinteros MD May 07, 2016 06:58
[2016-05-07] MEDS: Furosemide 10 mg/mL 2 mL Inj IVPUSH SCH (08:30)
--- NOTE | 2016-05-07 08:55 | NUR ---
CCU transfer Pt. transferred to CCU at 0840 this morning accompanied by primary nurse and LITIGATION COORDINATOR. Pt. was alert, could follow commands. Auguste catheter inserted per order from nigh shift. Clear yellow urine drained in bag. Daughter was updated by doctor regarding care plan while in [facility]. Report given to CCU nurse, Milly Loya RN.
[2016-05-07] MEDS ORDERED: 0.9% Sodium Chloride 250 ML ONE (10:03)
[2016-05-07] MEDS: cefTRIAXone Inj 2,000 MG in IV Premix 1 EACH IV SCH (10:15)
--- NOTE | 2016-05-07 10:20 | NUR ---
Pt transferred into CCU from [facility] at 0840hrs Pt was placed back on bi pap upon arrival. Pt and daughter both agree that this has helped her a lot. VS are stable, sats 99-100%She does have wheezes throughout and is decreased in her left base. She is in ST upon arrival but at this time is SR in the 70's. She is resting at this time. NPO for now, notified Red team that PO meds have been held at this time and these will be reviewed later. Pt received lasix IV at around 0630hrs and I have held the 0830 lasix dose for now and will review further doses. She had an excellent response to the lasix and has over 1000cc in her dawson.
--- NOTE | 2016-05-07 10:40 | DRSVH ---
PROCEDURE: X-RAY CHEST ONE VIEW, PORTABLE ([id number]) INDICATIONS: shortness of breath TECHNIQUE: One view of the chest was acquired. COMPARISON: [facility], CR, CHEST 2VW, 12/06/2011, 16:09. [facility], CT, CT ANGIO CHEST PE, 05/05/2016, 4:01. [facility], CR, XR CHEST 2VW, 05/05/2016, 0:55. FINDINGS: Surgical changes and devices: None. Lungs and pleura: No pleural effusions or pneumothorax. Lungs are little if any change from the abhilash ilable comparison plain films and CT scanning. There is a concern by CT scanning for presence of a l ingular segment possible mass lesion versus consolidative pneumonia. This area remains abnormal in a ppearance, and both pneumonia and neoplasm could produce the appearance. Mediastinum: Mediastinal contours appear normal. Heart size is normal. Bones and chest wall: No suspicious bony lesions. Overlying soft tissues appear unremarkable. IMPRESSION: Interstitial prominence present best seen by recent CT scanning may indicate a long-stand ing smoking history. This would significantly increase the likelihood that the area of lingular segm ent radiodensity within the lung parenchyma is malignancy or rather than simple pneumonia. The curre nt plain film does not discriminate between those 2 possibilities. Please correlate clinically. If signs and symptoms of pneumonia are absent the likelihood of malignancy is considered much higher. C ontinued followup is necessary. Dictated by: Robby Sandoval M.D. on 05/07/2016 at 10:38 Approved by: Robby Sandoval M.D. on 05/07/2016 at 10:38
--- NOTE | 2016-05-07 16:13 | ABG ---
DateTimeAnalyzed 16:07:00 -_ pH ____7.449 - 7.350 7.450 pCO2 ___38.5__ -mmHg 35.0 45.0 pO2 ___94.4__ -mmHg 69.0 116 HCO3- ___26.3__ -mmol/L 22.0 26.0 ABE ____2.6__ -mmol/L -2.0 2.0 tHb ____9.3__ -g/dL O2Hb ___95.5__ -% COHb ____1.5__ -% MetHb ____1.0__ -% sO2 ___97.9__ -% FIO2 ___40.0__ -% CPAP ___14.0__ -cmH2O PEEP ____6.0__ -cmH2O Set_RR ___18.0__ -b/min Vt __540.0__ -L Drawn By jmw - Date/Time Notified____ 16:12:00 -_ Spontaneous_RR ___18.0__ -b/min Oxygen Device 1 ____BIPAP - Notified By jmw - Notified Whom DR KENDREGEN - B 747 -mmHg tO2 ___12.7__ -Vol% OrderingPhysicianInitials bak - Ramon test _Positive -
--- NOTE | 2016-05-07 16:21 | NUR ---
Pt continues to be stable Pt has continued on bi-pap, VS are stable, pt denies any pain or dyspnea. Daughters are at the bedside. Dr. Pulido was paged to come and speak with family and he has done that. Dr. Mena was also called and I advised Daughters of when he was going to be able to come and speak with the family.
--- NOTE | 2016-05-07 16:59 | PROG NOTE ---
[address] [address] PROGRESS NOTE PATIENT: KENZIE RAMIREZ : 1945 MR#: [id number] ADMIT: 05/05/2016 JOB ID: [id number] DATE: 05/07/2016 SUBJECTIVE: The patient is a 70-year-old lady with history of hypercholesterolemia and lifelong smoker. She smoked at least half pack per day for 48 years. She was in her usual state of health until two days prior to hospitalization when she developed flu-like symptoms. She had a runny nose and sinus congestion. On the day of admission, she suddenly developed shortness of breath and an anxious feeling. She was found to be anemic with a hemoglobin of 8.1 and 2 units of packed red cell transfusion was given. She reports that her breathing is slightly better. She denies heaviness in her chest. She has problem with chronic constipation. She does not have any history of blood loss. PHYSICAL EXAMINATION: Temperature is 36.4. Blood pressure is 106/55. Pulse 101. Body weight is 79.55 kg. Head and face have normal configuration. Anicteric sclerae. Moist mucosa. She is on BiPAP. JVP was difficult to evaluate. Lungs: Bilateral wheezing and rhonchi. Heart: The first and second heart sounds are diminished. Grade 2/6 holosystolic murmur at the apex. Grade 3/6 systolic ejection murmur at the left upper sternal border, radiate to neck bilaterally. Abdomen: Soft, nontender. Extremity: Nicotine stained fingers. No clubbing or cyanosis. Neurologic: Grossly intact. Echocardiogram on May 06, 2016 showed left ventricular ejection fraction 45%. Severely dilated left atrium. Moderate to severe mitral regurgitation. Critical severe aortic stenosis with a calculated valve area of 0.68 cm2. Moderate to severe aortic regurgitation. Mild to moderate tricuspid regurgitation. BLOOD TESTS: Show hemoglobin 8.9, WBC 9.0, platelets 209. Sodium 126, potassium 4.5, chloride 92, bicarb 19, BUN 15, creatinine 0.5, glucose 110, troponin 0.046, 0.202, 0.262 and 0.346. IMPRESSION: 1. Acute combined systolic and diastolic heart failure. 2. Ischemic cardiomyopathy with ejection fraction 45%. 3. Qos-ND-iqdqaott myocardial infarction. 4. Aortic stenosis, aortic regurgitation and mitral regurgitation. 5. Chronic obstructive pulmonary disease/interstitial lung disease. 6. Nicotine addiction. 7. Hypercholesterolemia. PLAN: Her acute shortness of breath on admission could be from acute coronary event causing left ventricular systolic dysfunction and congestive heart failure and/or acute exacerbation of her COPD. The severity of the valvular heart disease that was reported by the echocardiogram is likely overestimated due to Doppler velocity that was performed during anemia which is in hyperdynamic state. I will ask Dr. Person to help manage her pulmonary status. I will give the patient intravenous furosemide. She also needs an anemic workup. EFREN
--- NOTE | 2016-05-07 17:20 | NUR ---
Evaluation completed. Please go to "Notes" then click on "Assessments and Notes" (bottom left corner of screen). Then select appropriate discipline tab on top of screen.
[2016-05-07] MEDS ORDERED: MethylprednisoLONE Sodium Succinate 40 mg/mL Inj IVPUSH ONE (17:25)
--- NOTE | 2016-05-07 17:35 | PCM.CHPMED ---
Subjective Date of Service: May 07, 2016 Provider requesting consult: Lexis Vidal MD Primary Physician: Admitting Physician: Esme Quinteros MD Primary Care Physician: Laney Barrett Attending Physician: Esme Quinteros MD Chief Complaint: Chief Complaint: Reason for pulmonary consult: Increasing oxygen requirements and application of BPAP History of Present Illness: Ms. Dang is a pleasant 70 year old woman with history of tobacco use and no other known diagnosed medical conditions that presented to [facility] with acute onset of dyspnea and cough. She was admitted for evaluation and treatment of suspected community acquired pneumonia, acute exacerbation of diastolic heart failure, and hyponatremia. Pulmonary was consulted for increasing oxygen requirements. She reports that prior to this admission dated 05/05/2016, she was feeling ill with general fatigue, rhinorrhea, and cough. She denies any sick contacts, but is in contact with small children. She admits to a 48 year smoking history, ranging from 0.5-1ppd. Denies any history of lung conditions or work up. Denies ever being informed she carries Dx of COPD, asthma. She states that her current respiratory decline occurred shortly after a nap, when she woke up feeling extremely short of breath. Currently, she is tolerating NC well, and denies any fever, chills, nausea, vomiting. Of note, she received 2U pRBC overnight 05/06-05/07 per cardiology, with plans for cardiac cath 05/08/2016. Initial ABG revealed: pH 7.164, pCO2 74.6, pO2 74.5, HCO3 25.7. She was reported to have AMS at that time, with pallor. CTA 05/05 revealed an interstitial process suggestive of early interstitial pulmonary edema, in addition to a patchy density of lingula. She was transferred from [facility] to ICU in stable condition on BPAP therapy. PMH Past Medical History Hypothyroidism Hyperlipidemia Tobacco use - 48 years 0.5-1 pack per day Home Medications Levothyroxine 25 g per day Pravastatin B vitamins Allergies: Coded Allergies: Honey Bee (Verified Allergy, Intermediate, Swelling and hives, 05/05/16) codeine (Verified Allergy, Intermediate, Light sensitivity, 05/05/16) pollen extracts (Unverified Allergy, Intermediate, Hives, 05/05/16) Social History Occupation: retired homemaker Hx Alcohol Use: NoHx Substance Use: NoHx Tobacco Use: Yes Smoking Status: Current Every Day Smoker Living Arrangement: Alone (daughter lives in [place]) Exam Vital Signs Vital Sign - Last Date Time Temp Pulse Resp B/P Pulse Ox O2 Delivery O2 Flow Rate FiO2 05/07/16 12:15 87 05/07/16 12:15 36.2 19 95/42 100 BiPAP 05/07/16 10:01 40 05/07/16 06:00 4.00 Intake and Output 05/06/16 05/06/16 05/07/16 Cumulative From/Thru 15:00 23:00 07:00 05/04/16 23:09 - 05/07/16 06:28 Intake Total 1474 ml 815 ml 4980 ml Output Total 690 ml 1200 ml 3440 ml Balance 784 ml -385 ml 1540 ml Intake Oral 1100 ml 100 ml 2550 ml IV Total 374 ml 75 ml 1790 ml Packed Cells 640 ml 640 ml Output Urine Total 690 ml 900 ml 3040 ml Urine/Stool Mix 300 ml 300 ml Emesis 100 ml # Voids 1 1 # Bowel Movements 1 General: Alert, Oriented X3, Cooperative, No Acute Distress Head: Normal Eyes: Scleral Anicteric Nose: Mucous Membr Moist/[place] Mouth: Mucous Membr Moist/[place] Chest & Lungs: Inspiratory wheezes (All holloway), Expiratory wheezes (All holloway ) Cardiovascular: Regular Rate/Rhythm, No Murmurs/Rubs/Gallops Abdomen: Non-tender, Non-distended Extremities: Warm, No Edema Neurological: Grossly Neurologically Intact, Normal Speech Lab and Diagnostics Result Diagram: 05/07/1635 05/07/1635 Assessment & Plan Assessment Ms. Dang is a pleasant 70 year old woman with history of tobacco use and no other known diagnosed medical conditions that presented to [facility] with acute onset of dyspnea and cough. She was admitted for evaluation and treatment of suspected community acquired pneumonia, acute exacerbation of diastolic heart failure, and hyponatremia. Pulmonary was consulted for increasing oxygen requirements. Suspected community acquired pneumonia, acute, present on admission. Under investigation - Afebrile throughout admission; WBC not elevated at admission - Abx: ceftraixone 2g daily, start date 05/06; azithromycin 500mg IV daily, start date 05/06 - On admit PCT: 0.05 - Repeat PCT - Resp PCR Acute hypoxemic respiratory failure, not present on admission. Improving - May be secondary to PNA, recent transfusion - Continue to wean O2 as tolerated - 88-92% goals - Treat underlying cause - May have ongoing O2 requirements if untreated/undiagnosed COPD a possibility Suspected COPD. Presumed stable - Recent illness may have led to exacerbation - Admits to poor outpatient follow up for various reasons - Solu-Medrol 40mg IV x1 - Prednisone 40mg daily x4 days, start date 05/08 - Duoneb QIDWA - Accuneb q2h prn - Consideration of Rx at [place] for inhalers Tobacco use disorder, chronic. Ongoing - Consider low dose patch - Cessation Abnormal finding on imaging, chronicity unknown, present on admission. Presumed stable - CTA 05/05: Interstitial process is occurring. Early interstitial pulmonary edema is most likely. Heart size is normal. No effusion is seen. Is there any evidence to suggest drug reaction or allergic reaction? No evidence for pulmonary embolus.There is some density thought to be airspace disease involving a portion of the lingula is present suggesting some pneumonia as well. Followup to clearing of this would be useful. A CT scan in several months to rule out underlying tumor would be useful. - CXR 05/07: Interstitial prominence present best seen by recent CT scanning may indicate a long-standing smoking history. This would significantly increase the likelihood that the area of lingular segment radiodensity within the lung parenchyma is malignancy or rather than simple pneumonia. The current plain film does not discriminate between those 2 possibilities. Please correlate clinically. If signs and symptoms of pneumonia are absent the likelihood of malignancy is considered much higher. - Recommend close outpatient follow up - Continual monitoring may be required Thank you for this most interesting consult, we will happily follow along with you. Total time: 40 minutes Problems: Pain Evaluation: Pain not Controlled VTE Prophylaxis: Sub-Q Enoxaparin Resuscitation Status: CPR: Attempt Resuscitation Attending Statement The patient was seen and examined together with Dr. Wallace on 05/07/2016 and I agree with the history, exam and plan as outlined in the note above. Ashley Wallace DO May 07, 2016 17:35 Jesús Person MD May 29, 2016 17:29
--- NOTE | 2016-05-07 17:41 | PCM.PNMED ---
Subjective Date of Service May 07, 2016 Subjective Pt seen and examined. Patient overnight had an episode of anxiety combined with shortness of breath. Patient was diuresed and placed on bipap. Patient was able to tolerate being on the bipap and her overall blood gas improved. Patient is currently hemodynamically stable on bipap and possible cath is being entertained for tomorrow. Exam Vital Signs Vital Sign - Last Date Time Temp Pulse Resp B/P Pulse Ox O2 Delivery O2 Flow Rate FiO2 05/07/16 12:15 87 05/07/16 12:15 36.2 19 95/42 100 BiPAP 05/07/16 10:01 40 05/07/16 06:00 4.00 Intake and Output 05/06/16 05/06/16 05/07/16 Cumulative From/Thru 15:00 23:00 07:00 05/04/16 23:09 - 05/07/16 06:28 Intake Total 1474 ml 815 ml 4980 ml Output Total 690 ml 1200 ml 3440 ml Balance 784 ml -385 ml 1540 ml Intake Oral 1100 ml 100 ml 2550 ml IV Total 374 ml 75 ml 1790 ml Packed Cells 640 ml 640 ml Output Urine Total 690 ml 900 ml 3040 ml Urine/Stool Mix 300 ml 300 ml Emesis 100 ml # Voids 1 1 # Bowel Movements 1 Exam General: Obese man sitting forward moderate distress HEENT: sclerae anicteric, oral mucosa moist Neck: no JVD Chest: bilateral ronchi, more pronounced at the bases Cardiac: S1S2, no murmur Abdomen: BS present, non-tender to palpate Extremities: trace edema Neuro: A&O, cranial nerves symmetric, motor strength 5/5, Lab and Diagnostics Result Diagram: 05/07/1635 05/07/1635 Microbiology Influenza screen negative Blood cultures pending X-Rays, CTs and MRIs PROCEDURE: CT ANGIO CHEST PULMONARY EMBOLISM ([id number]) INDICATIONS: short of breath, elev dimer FINDINGS: Image quality: Excellent. Lungs and pleura: Lungs show prominent increased interstitial markings. There is some patchy density consistent with consolidation involving a portion of the lingula of the left lung.. No pleural effusions or pneumothorax. Central and peripheral airways are patent. IMPRESSION: Interstitial process is occurring. Early interstitial pulmonary edema is most likely. Heart size is normal. No effusion is seen. Is there any evidence to suggest drug reaction or allergic reaction? There is some density thought to be airspace disease involving a portion of the lingula is present suggesting some pneumonia as well. Followup to clearing of this would be useful. A CT scan in several months to rule out underlying tumor would be useful. Dictated by: Jack Rene M.D. on 05/05/2016 at 9:08 this report corresponds to the findings of the preliminary NSR report. . 12-lead ECG Sinus rhythm rate 90, QTC 450, inferior Q waves, lateral repolarization abnormality V4-V6, LVH Assessment & Plan 70-year-old woman presents with acute shortness of breath with orthopnea, cough and interstitial pulmonary edema after an episode of apparently musculoskeletal left shoulder pain. Acute, active or high risk problems: # Community-acquired pneumonia. Symptoms of dyspnea, cough, sweating and possible chills along with left lingular radiologic opacity support diagnosis of possible-probable pneumonia. On admission she has normal white blood cell count and no fever. - Continue azithromycin plus ceftriaxone at present # Acute diastolic CHF. Orthopnea, wheezing and pedal edema suggest acute CHF. Electrocardiogram suggests past coronary artery disease. Heart murmur is compatible with aortic stenosis. Diastolic CHF likely exacerbated by acute lower respiratory infection. Less likely this is initial presentation of COPD. - Oxygen supplement as needed - Echo did not reveal any acute decompensation in the function - #NSTEMI - Pt has evidence of troponin elevation - as per cardiology pt placed on heparin drip, tanner, aspirin yesterday - Given lower gi bleed will hold heparin drip for the time being - Cath scheduled for tomorrow #Lower GI bleed - pt had an episode of dark bowel movement - cbc has remained stable and patient recieved 2 units of prbcs overnight # Hyponatremia. History does not suggest hypovolemic hyponatremia problem. Possible SIADH due to pulmonary process. - Check urine osmolality - IV hydration with isotonic fluids only. # Tobacco dependence. Ventilation was counseled by Bartolome regarding health benefits of cessation. - Nicotine patch # Left lingular radiopacity. Lung cancer is in differential. - Plan follow-up repeat lung imaging after treatment for acute pneumonia and heart failure # Left shoulder musculoskeletal pain. Clinical exam does not suggest fracture or dislocation. - Nonpharmacologic treatments - Low-dose ketorolac as needed Stable, chronic problems: # Hypothyroidism - continue levothyroxine at usual dose. # Hyperlipidemia # Essential tremor Assessment and Plan: Acute on chronic respiratory failure with hypercapnea Place on Bipap protocol Recheck ABG in 20-30 min. Maybe pulmonary edema with transfusion of 2 units pRBCS so: Lasix iv 40 mg NTP 1 " top now Check stat portable CXR Serial troponins 12 lead EKG now VTE Prophylaxis: Sub-Q Enoxaparin Resuscitation Status: CPR: Attempt Resuscitation Joao Pulido MD May 07, 2016 17:41
[2016-05-07] MEDS ORDERED: Albuterol-Ipratropium 3 mL Inhalation Solution NEB PRN (18:30)
[2016-05-07] MEDS: Albuterol-Ipratropium 3 mL Inhalation Solution NEB SCH (21:00)
[2016-05-08] VITALS (23 sets, daily range): BP systolic 94–128; BP diastolic 42–72; PULSE 82–108; RESP 12–24; O2SAT 94–99
[2016-05-08] MEDS: Promethazine Inj 12.5 MG in 0.9% Sodium Chloride 50 ML IV PRN (03:18)
[2016-05-08 04:06] LABS: Mean Corpuscular Hemoglobin 29.7 pg (27.0-35.0)
--- NOTE | 2016-05-08 05:01 | NUR ---
P: c/o anxiety. c/o nausea I: Ativan po. Phenergan IV. E: Shortly before midnight pt pulled off bipap mask c/o anxiety. "You have got to give me something. I am having a panic attack". Ativan 0.5mg po given. Pt eventually fell back to sleep w/ bipap on. Slept for approx 2 hours awakening w/ c/o abdominal cramping, severe nausea, and pt having disorientation. Pt attempting to get OOB frequently. Reorienting and staying at bedside w/ pt. Warm blanket to abdomen and phenergan order from pharmacy. Phenergan given, effective. During each event pt denying dyspnea. Currently on 3L NC and not wanting to use bipap. Alert, orient x 3 now but continues to dangle EOB, unable to rest, forgetful and restless. Glancing through cardiac procedure and CHF booklets. Exit bed alarm turned on. Denies dyspnea through night and pain other than abdominal cramping resolve w/ phenergan. Sats in the mid to high 90s on bipap and NC. RA sat down to 87%. Tele SR/ST, 1st AVB. BP stable.
[2016-05-08] MEDS: Albuterol-Ipratropium 3 mL Inhalation Solution NEB SCH ×4 (07:46→20:10)
[2016-05-08] MEDS ORDERED: Heparin 1,000 Units/500 mL NS Premix IV ONE (08:08)
[2016-05-08] MEDS ORDERED: 0.9% Sodium Chloride 1,000 ML ONE (08:08)
[2016-05-08] MEDS ORDERED: 0.9% Sodium Chloride 50 ML ONE (08:08)
[2016-05-08] MEDS ORDERED: Heparin 5,000 Units/500 mL NS Premix IV ONE (08:09)
--- NOTE | 2016-05-08 08:21 | NUR ---
Off unit to [employer]
[2016-05-08] MEDS ORDERED: fentaNYL-PF 50 mCg/mL 2 mL Inj ONE (08:29)
--- NOTE | 2016-05-08 09:27 | NUR ---
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
--- NOTE | 2016-05-08 10:03 | CS94 ---
[address] [address] DIAGNOSTIC CARDIAC CATHETERIZATION PATIENT: KENZIE RAMIREZ : 1945 MR#: [id number] ADMIT: 05/05/2016 JOB ID: [id number] SERVICE DATE: 05/08/2016 PATIENT PROFILE: The patient is a 70-year-old lady who presented with congestive heart failure and severe aortic stenosis. PROCEDURE: 1. Right heart catheterization. 2. Retrograde left heart catheterization. 3. Selective coronary angiography. VASCULAR CLOSURE DEVICE: Perclose. COMPLICATIONS: None. METHOD: Combined right and left heart catheterization was performed from the right groin under 1% lidocaine local anesthesia using a 6-[place] and an 8-[place] sheath. A 8-[place] catheter was used for the right heart pressures. Cardiac output was determined by both thermodilution technique and RAMIRO method. Selective coronary angiogram was performed in multiple projections, including cranial and caudal angulations with hand injected contrast via JL4 and 3DRC catheters. An AR1 catheter together with a Glidewire was used to cross the aortic valve and left ventricular pressure was obtained. This catheter was withdrawn. Right femoral angiogram was performed. Following sheath removal, hemostasis was achieved by using a Perclose device. The patient tolerated the procedure well. She was transferred to intensive care unit in stable condition. TOTAL CONTRAST USED: 45 cc. FLUOROSCOPY TIME: 3.8 minutes. RESULTS: 1. Mean right atrial pressure is 8 mmHg. Right ventricular pressure is 45/6 mmHg. Pulmonary artery pressure is 51/22 mmHg. 2. Mean pulmonary capillary wedge pressure is 45 mmHg. 3. Aortic pressure is 115/49 mmHg. Left ventricular pressure is 182/19 mmHg. 4. The mean pressure gradient across the aortic valve is 47 mmHg. 5. The aortic valve area is 0.63 cm2 with the index of 0.32 cm2/m2. 6. Cardiac output by the thermodilution technique is 5.4 L/minute with an index of 2.74 L/minute/m2. 7. Cardiac output by the RAMIRO method is 5.4 L/minute with an index of 2.74 L/minute/m2. 8. Arterial oxygen saturation is 88%. Mixed venous saturation is 53%. 9. Selective coronary angiogram: a. Left main coronary artery is normal. b. The left anterior descending artery is transapical and has moderate calcification in the proximal portion with 20%-30% stenosis. c. The circumflex artery and its obtuse marginal branch have minor irregularity. d. The codominant right coronary artery has minor irregularity of 20% stenosis. 10. Left ventricular end diastolic pressure is 39 mmHg. CONCLUSION: 1. Minor coronary artery disease. 2. Left ventricular end diastolic pressure is 39 mmHg. 3. Mean pulmonary capillary wedge pressure is 45 mmHg. 4. Cardiac index is 2.74 L/minute/m2. 5. Critical severe aortic stenosis with the aortic valve area of 0.63 cm2 and index of 0.32 cm2/m2. 6. Moderate pulmonary hypertension. MTDD
[2016-05-08] MEDS: Furosemide 10 mg/mL 2 mL Inj IVPUSH SCH (10:04)
[2016-05-08] MEDS: cefTRIAXone Inj 2,000 MG in IV Premix 1 EACH IV SCH (10:28)
[2016-05-08] MEDS: predniSONE 20 mg Tablet PO SCH (10:31)
--- NOTE | 2016-05-08 11:32 | PCM.PNMED ---
Subjective Date of Service May 08, 2016 Subjective PULMONARY PROGRESS NOTE Overnight: Patient was not tolerating BPAP well, stated it was causing anxiety. It was reported that she received ativan, of which, caused more distress and confusion. Vital remained stable overnight, and she maintained adequate saturations on nasal cannula. Today: Was sitting up in bed, preparing to go to tender labor. Reported she felt well, and denied any SOB, CP, fever, chills. Admitted to not tolerating the BPAP well, but was agreeable to continue trying. She reported anxiety about the procedure, but from a respiratory perspective, she said she felt much improved. Exam Vital Signs Vital Sign - Last Date Time Temp Pulse Resp B/P Pulse Ox O2 Delivery O2 Flow Rate FiO2 05/08/16 10:55 84 20 99/46 97 30 05/08/16 07:46 Nasal Cannula 3.00 05/08/16 07:23 36.5 Intake and Output 05/07/16 05/07/16 05/08/16 Cumulative From/Thru 15:00 23:00 07:00 05/04/16 23:09 - 05/08/16 05:47 Intake Total 280 ml 650 ml 5910 ml Output Total 1400 ml 375 ml 5215 ml Balance -1120 ml 275 ml 695 ml Intake Oral 150 ml 2700 ml IV Total 130 ml 650 ml 2570 ml Packed Cells 640 ml Output Urine Total 1400 ml 375 ml 4815 ml Urine/Stool Mix 300 ml Emesis 100 ml # Voids 1 # Bowel Movements 1 0 2 Exam General: AAOx3; pleasant, cooperative; no acute distress HENT: Atraumatic, sclera anicteric; mucus membranes moist Cardiac: Regular rate and rhythm at time of examination Respiratory: Adequate air flow all holloway; faint wheeze noted diffusely, but much improved Abdomen: Soft, nontender, nondistended Extremities: No edema Neuro: CNII-XII grossly intact; no facial asymmetry, speech normal Psych: Appropriate mood, affect, and responses to questioning Lab and Diagnostics Result Diagram: 05/08/1635405/08/16354 Microbiology Influenza screen negative Blood cultures pending X-Rays, CTs and MRIs PROCEDURE: CT ANGIO CHEST PULMONARY EMBOLISM ([id number]) INDICATIONS: short of breath, elev dimer FINDINGS: Image quality: Excellent. Lungs and pleura: Lungs show prominent increased interstitial markings. There is some patchy density consistent with consolidation involving a portion of the lingula of the left lung.. No pleural effusions or pneumothorax. Central and peripheral airways are patent. IMPRESSION: Interstitial process is occurring. Early interstitial pulmonary edema is most likely. Heart size is normal. No effusion is seen. Is there any evidence to suggest drug reaction or allergic reaction? There is some density thought to be airspace disease involving a portion of the lingula is present suggesting some pneumonia as well. Followup to clearing of this would be useful. A CT scan in several months to rule out underlying tumor would be useful. Dictated by: Jack Rene M.D. on 05/05/2016 at 9:08 this report corresponds to the findings of the preliminary NSR report. . 12-lead ECG Sinus rhythm rate 90, QTC 450, inferior Q waves, lateral repolarization abnormality V4-V6, LVH Assessment & Plan PULMONARY PROGRESS NOTE Ms. Dang is a pleasant 70 year old woman with history of tobacco use and no other known diagnosed medical conditions that presented to [facility] with acute onset of dyspnea and cough. She was admitted for evaluation and treatment of suspected community acquired pneumonia, acute exacerbation of diastolic heart failure, and hyponatremia. Pulmonary was consulted for increasing oxygen requirements. Suspected community acquired pneumonia, acute, present on admission. Under investigation - Afebrile throughout admission; WBC not elevated at admission - Abx: ceftraixone 2g daily, start date 05/06; azithromycin 500mg IV daily, start date 05/06; DC 05/10 - On admit PCT: 0.05 - Repeat PCT- 0.10 - Resp PCR- negative Acute hypoxemic respiratory failure, not present on admission. Improving - May be secondary to PNA, recent transfusion, underlying COPD exacerbation - Continue to wean O2 as tolerated - 88-92% goals - Treat underlying cause - May have ongoing O2 requirements if untreated/undiagnosed COPD a possibility Suspected COPD. Presumed stable - Recent illness may have led to exacerbation - Admits to poor outpatient follow up for various reasons - Solu-Medrol 40mg IV x1 - Prednisone 40mg daily x4 days, start date 05/08 - Duoneb QIDWA - Accuneb q2h prn - Consideration of Rx at [place] for inhalers - Recommend thorough outpatient work up, including PFTs Tobacco use disorder, chronic. Ongoing - Consider low dose patch - Cessation Abnormal finding on imaging, chronicity unknown, present on admission. Presumed stable - CTA 05/05: Interstitial process is occurring. Early interstitial pulmonary edema is most likely. Heart size is normal. No effusion is seen. Is there any evidence to suggest drug reaction or allergic reaction? No evidence for pulmonary embolus.There is some density thought to be airspace disease involving a portion of the lingula is present suggesting some pneumonia as well. Followup to clearing of this would be useful. A CT scan in several months to rule out underlying tumor would be useful. - CXR 05/07: Interstitial prominence present best seen by recent CT scanning may indicate a long-standing smoking history. This would significantly increase the likelihood that the area of lingular segment radiodensity within the lung parenchyma is malignancy or rather than simple pneumonia. The current plain film does not discriminate between those 2 possibilities. Please correlate clinically. If signs and symptoms of pneumonia are absent the likelihood of malignancy is considered much higher. - Recommend close outpatient follow up - Continual monitoring may be required Thank you for this most interesting consult, we will happily follow along with you and monitor the patient's respiratory progress. Total time: 40 minutes VTE Prophylaxis: Sub-Q Enoxaparin Resuscitation Status: CPR: Attempt Resuscitation Attending Statement The patient was seen and examined together with Dr. Wallace on 05/08/2016 and I agree with the history, exam and plan as outlined in the note above. Ashley Wallace DO May 08, 2016 11:32 Jesús Person MD May 29, 2016 17:31
--- NOTE | 2016-05-08 12:41 | NUR ---
NUTRITION ASSESSMENT Assess: 70 yo F w/ pneumonia, acute CHF, NSTEMI, lower GI bleed, and hyponatremia. Pt's respiratory status improving now on nasal cannula. Pt to have cath for NSTEMI today. Possible SIADH present. PMHx: Hypothyroid, HLD, Tobacco use LABS: Reviewed. Na 115, Cl 81, Cr 0.48, Glu 133 MEDICATIONS: Reviewed. Prednisone, Lasix, MVI DIET: Heart Healthy, PO bites-100% GI symptoms/stool: BM x1 05/07 Skin integrity: No issues reported; Abdirizak: 16 ANTHROPOMETRICS: Current Wt: 85.3 kg - bed wt BMI: 29.5 kg Admit Wt: 79.55 kg (BMI: 27.9 kg) - standing wt IBW: 61.4 kg Recent wt changes: None noted ESTIMATED NEEDS: (based on admit wt) Calories: 5680-6494 kcal/d (25-30 kcal/kg/d) Protein: 80-120 g/d (1-1.5 g/kg/d) Fluids: 6072-5635 ml/d (20-25 ml/kcal/d) NUTRITION DIAGNOSIS: 1) Inadequate oral intake related to acute illness as evidenced by variable PO intake of bites-100%. INTERVENTION: 1) Will send Gelatein Plus BID to promote calorie/protein intake MONITOR/EVALUATE: PO intake, Wt, GI, Nutrition status, POC. Will follow per moderate nutrition risk guidelines.
--- NOTE | 2016-05-08 13:59 | NUR ---
Spoke with both daughters yesterday regarding presence of infants as visitors in patient CCU room. Advised mother of risk r/t exposure to both flu and RSV currently on PCC/CCU unit, especially with both children having ongoing concerns related to prematurity at (smallest child has nasal feeding tube present). Neither mother of children nor her sibling are receptive to cautionary warning or willing to avoid or abstain from visiting. Although patient is receiving appropriate and skilled care, daughters insist on "firing" the bedside nurse and request alternate caregiver. Conflict persists through today's shift with daughter's interactions infused with anger and hostility. Attempt to ease situation unsuccessful.
--- NOTE | 2016-05-08 15:11 | NUR ---
Social Work Note: Continued Discharge Planning Data& Assessment: SW met with pt and pt daughter at bedside to discuss discharge planning, SW role explained. SW discussed possible Home Health vs. SNF with pt and pt daughter pending PT recommendations closer to discharge. Pt daughter provided with SNF/ HH list for preferences. Pt daughter explained she wanted to talk to someone in administration due to various complaints. SW consulted admin and provided phone number for pt daughter to contact. SW also provided private caregiving information to pt daughter per her request. Pt and pt daughter deny any other needs at this time. SW to continue to follow. Plan: Anticipated discharge home with home health vs. SNF when medically ready. List provided for preferences just in case. Pt and pt daughter deny any other needs at this time. SW to continue to follow. GIO Maddox
--- NOTE | 2016-05-08 15:55 | PCM.PNMED ---
Subjective Date of Service May 08, 2016 Subjective Cassy Dang is 70 year old woman with past medical history significant for 50 pack per year smoking history, hyperlipidemia, heart failure, ischemic cardiomyopathy with EF of 45%, valvular disease, and COPD who presented with flu -like symptoms. Admitted for acute on chronic heart failure and respiratory failure. Hospital day 4. Overnight: Patient became anxious with BPAP. Ativan was given and cause more distress and confusion. She was switched to a nasal cannula and maintained appropriate O2 sats. Today: Patient was sitting comfortably in bed after cardiac catheterization. She tolerated the procedure well. She denies any shortness of breath, chest pain, fever, chills. She does endorse feeling weak and tired. Exam Vital Signs Vital Sign - Last Date Time Temp Pulse Resp B/P Pulse Ox O2 Delivery O2 Flow Rate FiO2 05/08/16 15:11 36.5 108 18 101/55 97 Nasal Cannula 3.00 05/08/16 10:55 30 Intake and Output 05/07/16 05/07/16 05/08/16 Cumulative From/Thru 15:00 23:00 07:00 05/04/16 23:09 - 05/08/16 05:47 Intake Total 280 ml 650 ml 5910 ml Output Total 1400 ml 375 ml 5215 ml Balance -1120 ml 275 ml 695 ml Intake Oral 150 ml 2700 ml IV Total 130 ml 650 ml 2570 ml Packed Cells 640 ml Output Urine Total 1400 ml 375 ml 4815 ml Urine/Stool Mix 300 ml Emesis 100 ml # Voids 1 # Bowel Movements 1 0 2 Exam General: No acute distress, well-developed, well-nourished. HEENT: Normocephalic, atraumatic. Cardiovascular: Regular rate and rhythm with grade 3 systolic murmur. Pulmonary: Clear to auscultation bilaterally with faint wheezes diffusely. Abdomen: Bowel tones present. Soft, nontender, nondistended. Extremities: No peripheral edema. Neurological: Cranial nerves grossly intact. Psychiatric: Normal mood and affect. Alert and oriented to person, place, and time. Lab and Diagnostics Result Diagram: 05/08/16 2095 05/08/16 1321 Microbiology Influenza screen negative Blood cultures pending X-Rays, CTs and MRIs PROCEDURE: CT ANGIO CHEST PULMONARY EMBOLISM ([id number]) INDICATIONS: short of breath, elev dimer FINDINGS: Image quality: Excellent. Lungs and pleura: Lungs show prominent increased interstitial markings. There is some patchy density consistent with consolidation involving a portion of the lingula of the left lung.. No pleural effusions or pneumothorax. Central and peripheral airways are patent. IMPRESSION: Interstitial process is occurring. Early interstitial pulmonary edema is most likely. Heart size is normal. No effusion is seen. Is there any evidence to suggest drug reaction or allergic reaction? There is some density thought to be airspace disease involving a portion of the lingula is present suggesting some pneumonia as well. Followup to clearing of this would be useful. A CT scan in several months to rule out underlying tumor would be useful. Dictated by: Jack Rene M.D. on 05/05/2016 at 9:08 this report corresponds to the findings of the preliminary NSR report. . 12-lead ECG Sinus rhythm rate 90, QTC 450, inferior Q waves, lateral repolarization abnormality V4-V6, LVH Additional Diagnostics DIAGNOSTIC CARDIAC CATHETERIZATION RESULTS: 1. Mean right atrial pressure is 8 mmHg. Right ventricular pressure is 45/6 mmHg. Pulmonary artery pressure is 51/22 mmHg. 2. Mean pulmonary capillary wedge pressure is 45 mmHg. 3. Aortic pressure is 115/49 mmHg. Left ventricular pressure is 182/19 mmHg. 4. The mean pressure gradient across the aortic valve is 47 mmHg. 5. The aortic valve area is 0.63 cm2 with the index of 0.32 cm2/m2. 6. Cardiac output by the thermodilution technique is 5.4 L/minute with an index of 2.74 L/minute/m2. 7. Cardiac output by the RAMIRO method is 5.4 L/minute with an index of 2.74 L/minute/m2. 8. Arterial oxygen saturation is 88%. Mixed venous saturation is 53%. 9. Selective coronary angiogram: a. Left main coronary artery is normal. b. The left anterior descending artery is transapical and has moderate calcification in the proximal portion with 20%-30% stenosis. c. The circumflex artery and its obtuse marginal branch has minor irregularity. d. The codominant right coronary artery has minor irregularity of 20% stenosis. CONCLUSION: 1. Minor coronary artery disease. 2. Left ventricular end diastolic pressure is 39 mmHg. 3. Mean pulmonary capillary wedge pressure is 45 mmHg. 4. Cardiac index is 2.74 L/minute/m2. 5. Critical severe aortic stenosis with the aortic valve area of 0.63 cm2 and index of 0.32 cm2/m2. 6. Moderate pulmonary hypertension. Lexis Vidal MD 05/08/16 0925 Assessment & Plan Cassy Dang is 70 year old woman with past medical history significant for 50 pack per year smoking history, hyperlipidemia, heart failure, ischemic cardiomyopathy with EF of 45%, valvular disease, and COPD who presented with flu -like symptoms. Admitted for acute on chronic heart failure and respiratory failure. Hospital day 4. 1. Acute on chronic heart failure, present on admission, active. - Echo on 05/06/16 revealed EF of 45%. - Furosemide 20 mg daily. - Aspirin 81 mg daily. - Cardiology consulted. Appreciate time and expertise. 2. Critically severe aortic stenosis, present on admission, active. - Aortic valve area of 0.63 cm2 and index of 0.32 cm2/m2. - Patient requires aortic valve replacement but due to size of vessel TAVR is not an option. Therefore patient's cardiopulmonary status needs to be optimized prior to transfer for open procedure. - Cardiology consulted. Appreciate time and expertise. 3. Hyponatremia, present on admission, active. - Likely secondary to CHF. - Improving with diuresis. - Will repeat BMP in the morning. 4. Suspected community-acquired pneumonia, present on admission, active. - Afebrile throughout admission; WBC not elevated at admission - Ceftriaxone 2g daily and azithromycin 500mg IV daily started 05/06. Will complete 5 day course. - On admit PCT: 0.05 - Repeat PCT- 0.10 - Resp PCR- negative 5. Elevated troponins, present on admission, active. - Cardiac catheterization completed 05/08 showing mild coronary artery disease but no stentable lesions. - Heparin drip stopped. - Cardiology consulted. Appreciate time and expertise. 6. Suspected COPD, present on admission, - Life long smoker. - Solu-Medrol 40mg IV x1 - Prednisone 40mg daily x4 days, start date 05/08 - Duoneb QIDWA - Accuneb q2h prn - Recommend thorough outpatient work up, including PFTs - Pulmonology consulted. Appreciate time and expertise. 7. Acute hypoxemic respiratory failure, not present on admission. Improving - Likely secondary to acute CHF, severe aortic stenosis, or underlying COPD exacerbation. - Continue to wean O2 as tolerated with goal of 88-92%. - Diuresing patient as above will monitor to see if this improves status. - Pulmonology consulted. Appreciate time and expertise. 8. Hypothyroidism, present on admission, chronic. - Levothyroxine 25 mcg daily. 9. Hyperlipidemia, present on admission, chronic. - Atorvastatin 10 mg HS. 10. Tobacco use disorder. - Nicotine patch daily. - Discussed cessation. Disposition: Patient requires aortic valve replacement but due to size of vessel TAVR is not an option. Therefore patient's cardiopulmonary status needs to be optimized prior to open procedure. Transfer pending optimization. Pain Evaluation: Adequate Pain Control VTE Prophylaxis: SCDs VTE Mechanical Devices: Intermittant Pneumatic CD Resuscitation Status: CPR: Attempt Resuscitation Attending Statement The patient was seen and examined together with Dr. Bullard on 05/08/2016 and I agree with the history, exam and plan as outlined in the note above. . DEJAN BULLARD DO May 08, 2016 15:49 Singh Vallejo MD May 09, 2016 12:34 # Hypothyroidism - continue levothyroxine at usual dose. # Hyperlipidemia # Essential tremor CONCLUSION: 1. Minor coronary artery disease. 2. Left ventricular end diastolic pressure is 39 mmHg. 3. Mean pulmonary capillary wedge pressure is 45 mmHg. 4. Cardiac index is 2.74 L/minute/m2. 5. Critical severe aortic stenosis with the aortic valve area of 0.63 cm2 and index of 0.32 cm2/m2. 6. Moderate pulmonary hypertension. VTE Prophylaxis: Sub-Q Enoxaparin Resuscitation Status: CPR: Attempt Resuscitation DEJAN BULLARD DO May 08, 2016 15:49
--- NOTE | 2016-05-08 17:54 | NUR ---
Diuretics/ Hypotension / R groin Dr Mena stated he would like to diurese pt. MD notified patient only rec'd 20mg IV lasix this @ 1000. Total urine output 1400 this shift. No further orders at this time. Dr Mena will follow up in AM. Patient is intermittently hypotensive. was notified. If MAP maintains under 65 page MD. Current MAP = 65. R groin site is soft, non tender to touch. Dorsalis pedis pulses palpable. Tele: Sinus 90's. Pt Denies CP.
[2016-05-09 00:30] VITALS: BP 110/43; PULSE 90; O2SAT 97
[2016-05-09 03:46] LABS: BASOPHILS % (AUTO) 0.1 % (0-3); EOSINOPHILS % (AUTO) 0.2 % (0-5); MONOCYTES % (AUTO) 12.9 % (4-12); Mean Corpuscular Hemoglobin 29.7 pg (27.0-35.0); Mean Corpuscular Volume 86.8 fL (81-100); NEUTROPHILS % (AUTO) 69.5 % (40-74); Platelet Count 219 bil/L (150-400)
[2016-05-09 04:09] LABS: Magnesium 2.1 mg/dL (1.6-2.6)
[2016-05-09 04:30] VITALS: BP 124/65; PULSE 84; RESP 11; O2SAT 92
--- NOTE | 2016-05-09 05:41 | NUR ---
P: Desats on RA when asleep I: 2L NC E: Sleep apnea. Sats down to 88%, not sustained. 2L NC keep sats mid 90s+ at rest. Sleeps in short periods of time. When awake sits on EOB working w/ her cell phone. A/O, forgetful. Denies pain, dyspnea, N/V. Tele SR/ST, 1st AVB. BP stable. UOP approx 30+ml/hr, santiago. Tolerates water and refusing any other PO.
[2016-05-09] MEDS ORDERED: Furosemide 10 mg/mL 4 mL Inj IVPUSH ONE ×2 (07:25→13:00)
[2016-05-09] MEDS: Furosemide 10 mg/mL 2 mL Inj IVPUSH SCH (07:53)
[2016-05-09 07:54] VITALS: BP 119/59; PULSE 87; RESP 16; O2SAT 96
[2016-05-09] MEDS ORDERED: 0.9% Sodium Chloride 250 ML ONE (08:06)
[2016-05-09] MEDS: predniSONE 20 mg Tablet PO SCH (08:12)
[2016-05-09] MEDS: cefTRIAXone Inj 2,000 MG in IV Premix 1 EACH IV SCH (08:12)
[2016-05-09 08:18] VITALS: PULSE 82; RESP 18; O2SAT 98
[2016-05-09] MEDS: Albuterol-Ipratropium 3 mL Inhalation Solution NEB SCH ×2 (08:18→12:13)
--- NOTE | 2016-05-09 09:04 | PROG NOTE ---
[address] [address] PROGRESS NOTE PATIENT: KENZIE RAMIREZ : 1945 MR#: [id number] ADMIT: 05/05/2016 JOB ID: [id number] DATE: 05/09/2016 SUBJECTIVE: The patient underwent right and left heart catheterization yesterday. It demonstrated minor coronary artery disease, critical severe aortic stenosis with the aortic valve area of 0.63 cm2 and moderate pulmonary hypertension.
--- NOTE | 2016-05-09 09:08 | PROG NOTE ---
[address] [address] PROGRESS NOTE PATIENT: KENZIE RAMIREZ : 1945 MR#: [id number] ADMIT: 05/05/2016 JOB ID: [id number] DATE: 05/09/2016 SUBJECTIVE: The patient underwent right and left heart catheterization yesterday. It demonstrated minor coronary artery disease, critical severe aortic stenosis and moderate pulmonary hypertension. Intravenous furosemide was withheld yesterday evening due to borderline blood pressure. She received furosemide 40 mg IV this morning and responded well with urine output over 500 cc within the past hour. She reports that she still has shortness of breath with orthopnea and PND, although are a little better. OBJECTIVE: Temperature is 36.5. Blood pressure is 119/59. Pulse 82. Body weight is 84.7 kg. Neck: JVP is 4 cm. Lungs: Diminished breath sounds bilaterally. The first and second heart sounds are diminished. Grade 2/6 holosystolic murmur at the apex. Grade 3/6 systolic ejection murmur at the left upper sternal border, radiates to the neck bilaterally. Abdomen: Soft, nontender. Extremities: 1+ edema. Blood tests show hemoglobin 9.4, WBC 11.7, platelets 219. Sodium 120, potassium 4.5, chloride 83, bicarb 25, BUN 22, creatinine 0.08, glucose 107. IMPRESSION: 1. Critical severe aortic stenosis with the aortic valve area of 0.663 cm2. 2. Moderate to severe mitral regurgitation and mild to moderate tricuspid regurgitation. 3. Acute combined systolic and diastolic heart failure. 4. Chronic obstructive pulmonary disease. 5. Nicotine addiction. 6. Hypercholesterolemia. 7. Hyponatremia. 8. Anemia. PLAN: I expect her sodium and hemoglobin to improve as her heart failure is improving. She will require aortic valve replacement surgery. I have contacted Dr. Teran, cardiac surgeon in [place], who kindly accepted the patient.
--- NOTE | 2016-05-09 10:27 | PCM.PNMED ---
Subjective Date of Service May 09, 2016 Subjective PULMONARY PROGRESS NOTE Overnight: No acute events reported; noted sleep apnea with sats 88%, 2L NC was applied with sats in 90s. Stable Today: States she is feeling quite well. Denies any SOB, CP, fever, chills, nausea, vomiting. States that she is anxious about prolonged hospitalizations if she is transferred to another facility, because she has ' a lot of housework to do.' Denies any history of snoring, denies any previous concerns for sleep apnea. No previous work up. States she wakes up easily to noises, which she thinks has been occurring here. Exam Vital Signs Vital Sign - Last Date Time Temp Pulse Resp B/P Pulse Ox O2 Delivery O2 Flow Rate FiO2 05/09/16 04:30 Supplement Oxygen 05/09/16 04:30 36.3 84 11 124/65 92 05/09/16 00:30 3.00 05/08/16 10:55 30 Intake and Output 05/08/16 05/08/16 05/09/16 Cumulative From/Thru 15:00 23:00 07:00 05/04/16 23:09 - 05/09/16 05:14 Intake Total 470 ml 990 ml 7370 ml Output Total 1400 ml 560 ml 7175 ml Balance -930 ml 430 ml 195 ml Intake Oral 400 ml 990 ml 4090 ml IV Total 70 ml 2640 ml Packed Cells 640 ml Output Urine Total 1400 ml 560 ml 6775 ml Urine/Stool Mix 300 ml Emesis 100 ml # Voids 1 # Bowel Movements 0 2 Exam General: AAOx3; pleasant, cooperative; no acute distress; sitting at edge of bed HENT: Atraumatic, sclera anicteric; mucus membranes moist Cardiac: Regular rate and rhythm at time of examination Respiratory: Adequate air flow all holloway; faint wheeze noted diffusely, but much improved Abdomen: Soft, nontender, nondistended Extremities: No edema Neuro: CNII-XII grossly intact; no facial asymmetry, speech normal Psych: Appropriate mood, affect, and responses to questioning Lab and Diagnostics Result Diagram: 05/09/1633405/09/16334 Microbiology Influenza screen negative Blood cultures pending X-Rays, CTs and MRIs PROCEDURE: CT ANGIO CHEST PULMONARY EMBOLISM ([id number]) INDICATIONS: short of breath, elev dimer FINDINGS: Image quality: Excellent. Lungs and pleura: Lungs show prominent increased interstitial markings. There is some patchy density consistent with consolidation involving a portion of the lingula of the left lung.. No pleural effusions or pneumothorax. Central and peripheral airways are patent. IMPRESSION: Interstitial process is occurring. Early interstitial pulmonary edema is most likely. Heart size is normal. No effusion is seen. Is there any evidence to suggest drug reaction or allergic reaction? There is some density thought to be airspace disease involving a portion of the lingula is present suggesting some pneumonia as well. Followup to clearing of this would be useful. A CT scan in several months to rule out underlying tumor would be useful. Dictated by: Jack Rene M.D. on 05/05/2016 at 9:08 this report corresponds to the findings of the preliminary NSR report. . 12-lead ECG Sinus rhythm rate 90, QTC 450, inferior Q waves, lateral repolarization abnormality V4-V6, LVH Additional Diagnostics DIAGNOSTIC CARDIAC CATHETERIZATION RESULTS: 1. Mean right atrial pressure is 8 mmHg. Right ventricular pressure is 45/6 mmHg. Pulmonary artery pressure is 51/22 mmHg. 2. Mean pulmonary capillary wedge pressure is 45 mmHg. 3. Aortic pressure is 115/49 mmHg. Left ventricular pressure is 182/19 mmHg. 4. The mean pressure gradient across the aortic valve is 47 mmHg. 5. The aortic valve area is 0.63 cm2 with the index of 0.32 cm2/m2. 6. Cardiac output by the thermodilution technique is 5.4 L/minute with an index of 2.74 L/minute/m2. 7. Cardiac output by the RAMIRO method is 5.4 L/minute with an index of 2.74 L/minute/m2. 8. Arterial oxygen saturation is 88%. Mixed venous saturation is 53%. 9. Selective coronary angiogram: a. Left main coronary artery is normal. b. The left anterior descending artery is transapical and has moderate calcification in the proximal portion with 20%-30% stenosis. c. The circumflex artery and its obtuse marginal branch has minor irregularity. d. The codominant right coronary artery has minor irregularity of 20% stenosis. CONCLUSION: 1. Minor coronary artery disease. 2. Left ventricular end diastolic pressure is 39 mmHg. 3. Mean pulmonary capillary wedge pressure is 45 mmHg. 4. Cardiac index is 2.74 L/minute/m2. 5. Critical severe aortic stenosis with the aortic valve area of 0.63 cm2 and index of 0.32 cm2/m2. 6. Moderate pulmonary hypertension. Lexis Vidal MD 05/08/16 0925 Assessment & Plan PULMONARY PROGRESS NOTE Ms. Dang is a pleasant 70 year old woman with history of tobacco use and no other known diagnosed medical conditions that presented to [facility] with acute onset of dyspnea and cough. She was admitted for evaluation and treatment of suspected community acquired pneumonia, acute exacerbation of diastolic heart failure, and hyponatremia. Pulmonary was consulted for increasing oxygen requirements. Patient has been closely followed by cardiology, and during the cath 05/08, she was noted to have critical , that would benefit from valve replacement. Currently, requests placed to transfer to [facility]. Suspected community acquired pneumonia, acute, present on admission. Resolved - Afebrile throughout admission; WBC not elevated at admission - Abx: ceftraixone 2g daily, start date 05/06; azithromycin 500mg IV daily, start date 05/06; DC 05/10 - On admit PCT: 0.05 - Repeat PCT- 0.10 - Resp PCR- negative - Complete antibiotic course, DC 05/10 Acute hypoxemic respiratory failure, not present on admission. Improving - May be secondary to PNA, recent transfusion, underlying COPD exacerbation - Continue to wean O2 as tolerated - 88-92% goals - Treat underlying cause - May have ongoing O2 requirements if untreated/undiagnosed COPD a possibility - If DC'd from [facility], may need arrange home O2 prior to DC Suspected COPD. Presumed stable - Recent illness may have led to exacerbation - Admits to poor outpatient follow up for various reasons - Solu-Medrol 40mg IV x1 - Prednisone 40mg daily x4 days, start date 05/08 - Duoneb QIDWA - Accuneb q2h prn - Consideration of Rx at [facility] for inhalers - Recommend thorough outpatient work up, including PFTs Tobacco use disorder, chronic. Ongoing - Consider low dose patch - Cessation Abnormal finding on imaging, chronicity unknown, present on admission. Presumed stable - CTA 05/05: Interstitial process is occurring. Early interstitial pulmonary edema is most likely. Heart size is normal. No effusion is seen. Is there any evidence to suggest drug reaction or allergic reaction? No evidence for pulmonary embolus.There is some density thought to be airspace disease involving a portion of the lingula is present suggesting some pneumonia as well. Followup to clearing of this would be useful. A CT scan in several months to rule out underlying tumor would be useful. - CXR 05/07: Interstitial prominence present best seen by recent CT scanning may indicate a long-standing smoking history. This would significantly increase the likelihood that the area of lingular segment radiodensity within the lung parenchyma is malignancy or rather than simple pneumonia. The current plain film does not discriminate between those 2 possibilities. Please correlate clinically. If signs and symptoms of pneumonia are absent the likelihood of malignancy is considered much higher. - Recommend close outpatient follow up - Continual monitoring may be required - Due to severity and urgency of , recommend work up when stable. Sleep apnea, suspected - Patient denies any history of snoring, waking up abruptly - Recommend outpatient FU Thank you for this most interesting consult, we will happily follow along with you and monitor the patient's respiratory progress while she is here. Total time: 40 minutes Pain Evaluation: Adequate Pain Control VTE Prophylaxis: SCDs VTE Mechanical Devices: Intermittant Pneumatic CD Resuscitation Status: CPR: Attempt Resuscitation Attending Statement The patient was seen and examined together with Dr. Wallace on 05/09/2016 and I agree with the history, exam and plan as outlined in the note above. Ashley Wallace DO May 09, 2016 07:35 Jesús Person MD May 29, 2016 17:41
--- NOTE | 2016-05-09 11:59 | PCM.PNMED ---
Subjective Date of Service May 09, 2016 Subjective Cassy Dang is 70 year old woman with past medical history significant for 50 pack per year smoking history, hyperlipidemia, heart failure, ischemic cardiomyopathy with EF of 45%, valvular disease, and COPD who presented with flu -like symptoms. Admitted for acute on chronic heart failure and respiratory failure. Hospital day 5. Overnight: No acute events. Today: Patient was sitting comfortably in bed watching television. She states she feels much improved today. Denies any chest pain, shortness of breath, nausea, abdominal pain, dysuria, or diarrhea. Patient understands that she will be transferred for aortic valve replacement likely this afternoon. Exam Vital Signs Vital Sign - Last Date Time Temp Pulse Resp B/P Pulse Ox O2 Delivery O2 Flow Rate FiO2 05/09/16 04:30 Supplement Oxygen 05/09/16 04:30 36.3 84 11 124/65 92 05/09/16 00:30 3.00 05/08/16 10:55 30 Intake and Output 05/08/16 05/08/16 05/09/16 Cumulative From/Thru 15:00 23:00 07:00 05/04/16 23:09 - 05/09/16 05:14 Intake Total 470 ml 990 ml 7370 ml Output Total 1400 ml 560 ml 7175 ml Balance -930 ml 430 ml 195 ml Intake Oral 400 ml 990 ml 4090 ml IV Total 70 ml 2640 ml Packed Cells 640 ml Output Urine Total 1400 ml 560 ml 6775 ml Urine/Stool Mix 300 ml Emesis 100 ml # Voids 1 # Bowel Movements 0 2 Exam General: No acute distress, well-developed, well-nourished. HEENT: Normocephalic, atraumatic. Cardiovascular: Regular rate and rhythm with grade 3 systolic murmur. Pulmonary: Clear to auscultation bilaterally with faint wheezes diffusely. Abdomen: Bowel tones present. Soft, nontender, nondistended. Extremities: No peripheral edema. Neurological: Cranial nerves grossly intact. Psychiatric: Normal mood and affect. Alert and oriented to person, place, and time. Lab and Diagnostics Procalcitonin 0.10 --> Result Diagram: 05/09/1633405/09/16334 Microbiology Influenza screen negative Blood cultures pending X-Rays, CTs and MRIs PROCEDURE: CT ANGIO CHEST PULMONARY EMBOLISM ([id number]) INDICATIONS: short of breath, elev dimer FINDINGS: Image quality: Excellent. Lungs and pleura: Lungs show prominent increased interstitial markings. There is some patchy density consistent with consolidation involving a portion of the lingula of the left lung.. No pleural effusions or pneumothorax. Central and peripheral airways are patent. IMPRESSION: Interstitial process is occurring. Early interstitial pulmonary edema is most likely. Heart size is normal. No effusion is seen. Is there any evidence to suggest drug reaction or allergic reaction? There is some density thought to be airspace disease involving a portion of the lingula is present suggesting some pneumonia as well. Followup to clearing of this would be useful. A CT scan in several months to rule out underlying tumor would be useful. Dictated by: Jack Rene M.D. on 05/05/2016 at 9:08 this report corresponds to the findings of the preliminary NSR report. . 12-lead ECG Sinus rhythm rate 90, QTC 450, inferior Q waves, lateral repolarization abnormality V4-V6, LVH Additional Diagnostics DIAGNOSTIC CARDIAC CATHETERIZATION RESULTS: 1. Mean right atrial pressure is 8 mmHg. Right ventricular pressure is 45/6 mmHg. Pulmonary artery pressure is 51/22 mmHg. 2. Mean pulmonary capillary wedge pressure is 45 mmHg. 3. Aortic pressure is 115/49 mmHg. Left ventricular pressure is 182/19 mmHg. 4. The mean pressure gradient across the aortic valve is 47 mmHg. 5. The aortic valve area is 0.63 cm2 with the index of 0.32 cm2/m2. 6. Cardiac output by the thermodilution technique is 5.4 L/minute with an index of 2.74 L/minute/m2. 7. Cardiac output by the RAMIRO method is 5.4 L/minute with an index of 2.74 L/minute/m2. 8. Arterial oxygen saturation is 88%. Mixed venous saturation is 53%. 9. Selective coronary angiogram: a. Left main coronary artery is normal. b. The left anterior descending artery is transapical and has moderate calcification in the proximal portion with 20%-30% stenosis. c. The circumflex artery and its obtuse marginal branch has minor irregularity. d. The codominant right coronary artery has minor irregularity of 20% stenosis. CONCLUSION: 1. Minor coronary artery disease. 2. Left ventricular end diastolic pressure is 39 mmHg. 3. Mean pulmonary capillary wedge pressure is 45 mmHg. 4. Cardiac index is 2.74 L/minute/m2. 5. Critical severe aortic stenosis with the aortic valve area of 0.63 cm2 and index of 0.32 cm2/m2. 6. Moderate pulmonary hypertension. Lexis Vidal MD 05/08/16 0925 Assessment & Plan Cassy Dang is 70 year old woman with past medical history significant for 50 pack per year smoking history, hyperlipidemia, heart failure, ischemic cardiomyopathy with EF of 45%, valvular disease, and COPD who presented with flu -like symptoms. Admitted for acute on chronic heart failure and respiratory failure. Hospital day 5. 1. Acute on chronic heart failure, present on admission, active. - Echo on 05/06/16 revealed EF of 45%. - Furosemide 20 mg daily. - Aspirin 81 mg daily. - Cardiology consulted. Appreciate time and expertise. 2. Critically severe aortic stenosis, present on admission, active. - Aortic valve area of 0.63 cm2 and index of 0.32 cm2/m2. - Patient requires aortic valve replacement but due to size of vessel TAVR is not possible so she will have an open procedure. - Transfer to [place] (Dr. Teran) being handled by cardiology. Despite discharge this afternoon. - Cardiology consulted. Appreciate time and expertise. 3. Hyponatremia, present on admission, active. - Likely secondary to CHF. - Improving with diuresis. - Will repeat BMP in the morning. 4. Suspected community-acquired pneumonia, present on admission, active. - Afebrile throughout admission; WBC not elevated at admission - Ceftriaxone 2g daily and azithromycin 500mg IV daily started 05/06. Will complete 5 day course. - On admit PCT: 0.05 - Repeat PCT- 0.10 - Resp PCR- negative 5. Elevated troponins, present on admission, active. - Cardiac catheterization completed 05/08 showing mild coronary artery disease but no stentable lesions. - Heparin drip stopped. - Cardiology consulted. Appreciate time and expertise. 6. Suspected COPD, present on admission, - Life long smoker. - Solu-Medrol 40mg IV x1 - Prednisone 40mg daily x4 days, start date 05/08 - Duoneb QIDWA - Accuneb q2h prn - Recommend thorough outpatient work up, including PFTs - Pulmonology consulted. Appreciate time and expertise. 7. Acute hypoxemic respiratory failure, not present on admission. Improving - Likely secondary to acute CHF, severe aortic stenosis, or underlying COPD exacerbation. - Continue to wean O2 as tolerated with goal of 88-92%. - Diuresing patient as above will monitor to see if this improves status. - Pulmonology consulted. Appreciate time and expertise. 8. Hypothyroidism, present on admission, chronic. - Levothyroxine 25 mcg daily. 9. Hyperlipidemia, present on admission, chronic. - Atorvastatin 10 mg HS. 10. Tobacco use disorder. - Nicotine patch daily. - Discussed cessation. Disposition: Patient requires aortic valve replacement. Transfer to [place] anticipated for this afternoon. Cardiology handling transfer. Pain Evaluation: Adequate Pain Control VTE Prophylaxis: SCDs VTE Mechanical Devices: Intermittant Pneumatic CD Resuscitation Status: CPR: Attempt Resuscitation Attending Statement The patient was seen and examined together with Dr. Bullard on 05/09/2015 and I agree with the history, exam and plan as outlined in the note above. . DEJAN BULLARD DO May 09, 2016 06:59 Singh Vallejo MD May 09, 2016 12:35
[2016-05-09 12:14] VITALS: PULSE 99; RESP 16; O2SAT 93
[2016-05-09 12:30] VITALS: BP 116/64; PULSE 93; RESP 16; O2SAT 95
[2016-05-09] MEDS ORDERED: Potassium Chloride 20 mEq SR Tablet PO ONE (13:00)
--- NOTE | 2016-05-09 13:44 | NUR ---
Discharge: A/o x3, moves all extremities, responds appropriately. VSS, tele SR 80s-90s, R groin site soft/nontender. Auguste cath with good output, pt received 80mg IV Lasix total, 2200mL pale UOP per [facility]. Transferred to [facility], pt consented to transfer. D/c'd with all personal belongings, transport by [facility]. Report called to [facility].
--- NOTE | 2016-05-09 13:50 | NUR ---
Social Work: Continued D/c Planning D: Pt discussed in am rounds. Pt being transferred to [place] today for further medical treatment. No further case maangemenet needs required during pt's stay at [facility]. A: Pt who is I at baseline. P: Anticipate transfer to [place]; Hospitality Host to facilitate transfer GIO Szymanski
--- NOTE | 2016-05-09 18:35 | PCM.DC.MED ---
Discharge Summary Date of Service May 09, 2016 Dates of Hospitalization Date of Hospital Admission May 05, 2016 at 07:26 Date of Discharge: May 09, 2016 Providers: Admitting Physician: Esme Quinteros MD Primary Care Physician: Laney Barrett Attending Physician: Esme Quinteros MD Diagnosis at Time of Discharge Diagnosis at Time of Discharge 1. Acute on chronic heart failure, present on admission, active. 2. Critically severe aortic stenosis, present on admission, active. 3. Hyponatremia, present on admission, active. 4. Suspected community-acquired pneumonia, present on admission, under treatment. 5. Elevated troponins, present on admission, active. 6. Suspected COPD, present on admission, stable. 7. Acute hypoxemic respiratory failure, not present on admission. Improving 8. Hypothyroidism, present on admission, chronic. 9. Hyperlipidemia, present on admission, chronic. 10. Tobacco use disorder. Consultations Cardiology - Dr. Mckeonutr Pulmonology - Dr. Person Procedures XRay, CTs & MRIs PROCEDURE: CT ANGIO CHEST PULMONARY EMBOLISM ([id number]) INDICATIONS: short of breath, elev dimer FINDINGS: Image quality: Excellent. Lungs and pleura: Lungs show prominent increased interstitial markings. There is some patchy density consistent with consolidation involving a portion of the lingula of the left lung.. No pleural effusions or pneumothorax. Central and peripheral airways are patent. IMPRESSION: Interstitial process is occurring. Early interstitial pulmonary edema is most likely. Heart size is normal. No effusion is seen. Is there any evidence to suggest drug reaction or allergic reaction? There is some density thought to be airspace disease involving a portion of the lingula is present suggesting some pneumonia as well. Followup to clearing of this would be useful. A CT scan in several months to rule out underlying tumor would be useful. Dictated by: Jack Rene M.D. on 05/05/2016 at 9:08 this report corresponds to the findings of the preliminary NSR report. . ECG 12 Lead Sinus rhythm rate 90, QTC 450, inferior Q waves, lateral repolarization abnormality V4-V6, LVH Cardiac Echo Impression Echocardiogram Report Study Date: 05/06/2016 Interpretation Summary The left ventricle is normal in size. Left ventricular systolic function is mildly reduced. Left ventricular ejection fraction is estimated to be 45%. There appears moderate hypokinesis along the mid/distal septum and there is presence of mild global hypokinesis. The right ventricle is normal in size and function. The right ventricular systolic pressure is estimated at 43 mmHg assuming a right atrial pressure of 8 mm Hg. The left atrium is severely dilated. Right atrial size is normal. There is moderate to severe mitral regurgitation. The aortic valve is not well visualized. The aortic valve is severely calcified. The peak aortic velocity is 5.19 m/sec. The aortic valve mean gradient is 68.8 mmHg. The calculated aortic valve area is 0.68 cm2. There is critically severe aortic stenosis. There is moderate to severe aortic regurgitation. There is mild to moderate tricuspid regurgitation. The ascending aorta is mildly enlarged. Reading Physician:[place] Other Diagnostics DIAGNOSTIC CARDIAC CATHETERIZATION RESULTS: 1. Mean right atrial pressure is 8 mmHg. Right ventricular pressure is 45/6 mmHg. Pulmonary artery pressure is 51/22 mmHg. 2. Mean pulmonary capillary wedge pressure is 45 mmHg. 3. Aortic pressure is 115/49 mmHg. Left ventricular pressure is 182/19 mmHg. 4. The mean pressure gradient across the aortic valve is 47 mmHg. 5. The aortic valve area is 0.63 cm2 with the index of 0.32 cm2/m2. 6. Cardiac output by the thermodilution technique is 5.4 L/minute with an index of 2.74 L/minute/m2. 7. Cardiac output by the RAMIRO method is 5.4 L/minute with an index of 2.74 L/minute/m2. 8. Arterial oxygen saturation is 88%. Mixed venous saturation is 53%. 9. Selective coronary angiogram: a. Left main coronary artery is normal. b. The left anterior descending artery is transapical and has moderate calcification in the proximal portion with 20%-30% stenosis. c. The circumflex artery and its obtuse marginal branch has minor irregularity. d. The codominant right coronary artery has minor irregularity of 20% stenosis. CONCLUSION: 1. Minor coronary artery disease. 2. Left ventricular end diastolic pressure is 39 mmHg. 3. Mean pulmonary capillary wedge pressure is 45 mmHg. 4. Cardiac index is 2.74 L/minute/m2. 5. Critical severe aortic stenosis with the aortic valve area of 0.63 cm2 and index of 0.32 cm2/m2. 6. Moderate pulmonary hypertension. Lexis Vidal MD 05/08/16 [address] Rdz's H&P: The patient was in her usual state of health, fully capable of her own ADLs. Two days prior to admission she experienced experienced acute left shoulder pain when lifting heavy bags of groceries. She took aspirin and ibuprofen with mild relief. On she awakened from a nap in the afternoon feeling acutely short of breath. Describes labored breathing without significant chest pain. She endorses orthopnea. She denies change in her mild chronic pedal edema. After presentation to the emergency room and she began to notice a cough minimally productive of white phlegm. She describes no recent respiratory infectious exposures. She has not had influenza vaccination. She has felt cold over the past couple days but no fevers or shaking chills. She endorses sweating episodes. She endorses pain in left shoulder with movement. No other musculoskeletal pain. Hospital Course Cassy Dnag is 70 year old woman with past medical history significant for 50 pack per year smoking history, hyperlipidemia, heart failure, ischemic cardiomyopathy with EF of 45%, valvular disease, and COPD who presented with flu -like symptoms. Admitted for acute on chronic heart failure and respiratory failure and found to have critically severe aortic stenosis. 1. Acute on chronic heart failure, present on admission, active. - Echo on 05/06/16 revealed EF of 45%. - Furosemide 20 mg daily. - Aspirin 81 mg daily. - Cardiology consulted. Appreciated time and expertise. 2. Critically severe aortic stenosis, present on admission, active. - Aortic valve area of 0.63 cm2 and index of 0.32 cm2/m2. - Patient requires aortic valve replacement but due to size of vessel TAVR is not possible so she will have an open procedure. - Transfer to [place] (Dr. Teran) being handled by cardiology. - Cardiology consulted. Appreciated time and expertise. 3. Hyponatremia, present on admission, active. - Likely secondary to CHF. - Improving with diuresis. 4. Suspected community-acquired pneumonia, present on admission, under treatment. - Afebrile throughout admission; WBC not elevated at admission - Ceftriaxone 2g daily and azithromycin 500mg IV daily started 05/06. Will complete 5 day course. - On admit PCT: 0.05 - Repeat PCT- 0.10 - Resp PCR- negative 5. Elevated troponins, present on admission, active. - Cardiac catheterization completed 05/08 showing mild coronary artery disease but no stentable lesions. - Heparin drip stopped. - Cardiology consulted. Appreciated time and expertise. 6. Suspected COPD, present on admission, stable. - Life long smoker. - Solu-Medrol 40mg IV x1 - Prednisone 40mg daily x4 days, start date 05/08 - Duoneb QIDWA - Accuneb q2h prn - Recommend thorough outpatient work up, including PFTs. - Pulmonology consulted. Appreciated time and expertise. 7. Acute hypoxemic respiratory failure, not present on admission. Improving - Likely secondary to acute CHF, severe aortic stenosis, or underlying COPD exacerbation. - Continued to wean O2 as tolerated with goal of 88-92%. - Diureses improved oxygenation. - Pulmonology consulted. Appreciated time and expertise. 8. Hypothyroidism, present on admission, chronic. - Levothyroxine 25 mcg daily. 9. Hyperlipidemia, present on admission, chronic. - Atorvastatin 10 mg HS. 10. Tobacco use disorder. - Nicotine patch daily. - Discussed cessation. Exam Vital Signs (Last) Date Time Temp Pulse Resp B/P Pulse Ox O2 Delivery O2 Flow Rate FiO2 05/09/16 12:30 93 16 116/64 95 Nasal Cannula 1.00 05/09/16 07:54 36.5 05/08/16 10:55 30 Exam General: No acute distress, well-developed, well-nourished. HEENT: Normocephalic, atraumatic. Cardiovascular: Regular rate and rhythm with grade 3 systolic murmur. Pulmonary: Clear to auscultation bilaterally with faint wheezes diffusely. Abdomen: Bowel tones present. Soft, nontender, nondistended. Extremities: No peripheral edema. Neurological: Cranial nerves grossly intact. Psychiatric: Normal mood and affect. Alert and oriented to person, place, and time. Test 05/05/16 01:23 05/05/16 13:20 05/05/16 15:53 05/06/16 22:00 D-Dimer 0.8mg/L (<0.50) Thyroid Stimulating Hormone (TSH) 2.240uIU/mL (0.450-4.500) Hold Herman Top Tube Received (Received) Pro-B-Type Natriuretic Peptide 4477pg/mL (0-301) Urine Color Yellow (YELLOW) Urine Appearance Clear (CLEAR,HAZY) Urine pH 6.0 (5.0-8.0) Urine Specific [place] 1.010 (1.003-1.035) Urine Protein Negativemg/dL (NEG,TRACE) Urine Glucose (UA) Negativemg/dL (NEGATIVE) Urine Ketones Negativemg/dL (NEGATIVE) Urine Occult Blood Trace (NEGATIVE) Urine Nitrite Negative (NEGATIVE) Urine Bilirubin Negative (NEGATIVE) Urine Urobilinogen Normalmg/dL (NORMAL) Urine Leukocyte Esterase Negative (NEGATIVE) Urine RBC 0-2/hpf (0-2) Urine WBC 0-5/hpf (0-5) Urine Epithelial Cells Few/hpf (NONE-MOD) Urine Crystals None seen (NONE SEEN) Urine Bacteria Few/hpf (NONE-FEW) Urine Hyaline Casts None/lpf (NONE) Urine Granular Casts None seen (NONE SEEN) Urine Waxy Casts None seen (NONE SEEN) Urine Red Blood Cell Casts None seen (NONE SEEN) Urine White Blood Cell Casts None seen (NONE SEEN) Urine Mucus None seen (None Seen) Urine Trichomonas None seen (NONE SEEN) Urine Yeast None (NONE SEEN) Urinalysis Comment None Urine Culture Reflexed Not indicated Urine Osmolality 330mOs/kH2O (250-1200) Urine Random Creatinine 25mg/dL (15-278) Urine Random Sodium 76mEq/L Activated Partial Thromboplast Time 27.8sec (22.8-33.0) Test 05/07/16 18:52 05/09/16 03:35 Troponin T 0.316ug/L (0.0-0.011) White Blood Count 11.7th/mm3 (3.8-10.1) Red Blood Count 3.17mil/mm3 (3.90-5.20) Hemoglobin 9.4g/dL (12.0-15.6) Hematocrit 27.5% (35.0-46.0) Mean Corpuscular Volume 86.8fL (81-100) Mean Corpuscular Hemoglobin 29.7pg (27.0-35.0) Mean Corpuscular Hemoglobin Concent 34.2% (32.0-37.0) Red Cell Distribution Width 14.0% (12.3-15.4) Platelet Count 219bil/L (150-400) Neutrophils (%) (Auto) 69.5% (40-74) Lymphocytes (%) (Auto) 16.9% (14-46) Monocytes (%) (Auto) 12.9% (4-12) Eosinophils (%) (Auto) 0.2% (0-5) Basophils (%) (Auto) 0.1% (0-3) Sodium Level 120mEq/L (134-144) Potassium Level 4.5mEq/L (3.5-5.2) Chloride Level 83mEq/L (97-108) Carbon Dioxide Level 25mmol/L (18-29) Blood Urea Nitrogen 22mg/dL (8-27) Creatinine 0.48mg/dL (0.57-1.00) Estimat Glomerular Filtration Rate 183mL/min (>59) Glucose Level 107mg/dL (60-99) Calcium Level 8.6mg/dL (8.5-10.1) Magnesium Level 2.1mg/dL (1.6-2.6) Total Bilirubin 0.3mg/dL (0.0-1.2) Aspartate Amino Transf (AST/SGOT) 40U/L (0-50) Alanine Aminotransferase (ALT/SGPT) 41U/L (0-32) Alkaline Phosphatase 85U/L (25-165) Total Protein 5.5g/dL (6.4-8.4) Albumin 3.3g/dL (3.4-5.0) Procalcitonin 0.08ng/mL (See Comment) Microbiology Results Influenza screen negative Blood cultures pending Discharge Medications Discharge Medications Ascorbic Acid/Multivit-Min (Emergen-C 1,000 mg Packet) 1,000 Mg Effpowdpkt 1, 000 MG PO DAILY (Reported) Levothyroxine (Levothyroxine) 25 Mcg Tablet 25 MCG PO MORNING (Reported) Multivitamin (Multi Vitamin Daily) 1 Each Tablet 1 TABLET PO DAILY (Reported) Pravastatin (Pravachol) 20 Mg Tablet 20 MG PO MORNING (Reported) Wheat Dextrin (Benefiber) 1 Each Powd.pack 1 EACH PO DAILY (Reported) Followup Plan Disposition: Transferred for aortic valve replacement. Time spent Greater than 30 minutes was spent in preparation of discharge with greater than 50% of that time dedicated to patient counseling and coordination of care. . Attending Statement The patient was seen and examined together with Dr. Quick on 05/09/2016 and I agree with the history, exam and plan as outlined in the note above. . copies to: Laney Barrett BETHANY A DO May 09, 2016 18:35 Singh Vallejo MD May 11, 2016 08:06
== END 2016-05-09 13:45 | disposition short-term general hospital (02) | DRG 280 ==
LOC: SED 22:56 → OSC 05-05 07:26 → CCU 05-07 09:39
PROVIDERS: ADMIT Specialist; ATTEND Internal Medicine
PROC: 30233N1 Transfusion of Nonautologous Red Blood Cells into Peripheral Vein, Percutaneous Approach (ICD-10-PCS; 2016-05-06)
PROC: 4A033R1 Measurement of Arterial Saturation, Peripheral, Percutaneous Approach (ICD-10-PCS; principal; 2016-05-07)
PROC: 30233N1 Transfusion of Nonautologous Red Blood Cells into Peripheral Vein, Percutaneous Approach (ICD-10-PCS; 2016-05-07)
PROC: 4A023N8 Measurement of Cardiac Sampling and Pressure, Bilateral, Percutaneous Approach (ICD-10-PCS; 2016-05-08)
PROC: B2111ZZ Fluoroscopy of Multiple Coronary Arteries using Low Osmolar Contrast (ICD-10-PCS; 2016-05-08)
PROC: 4A1239Z Monitoring of Cardiac Output, Percutaneous Approach (ICD-10-PCS; 2016-05-08)
DX: I50.41 Acute combined systolic (congestive) and diastolic (congestive) heart failure (principal); J18.9 Pneumonia, unspecified organism; I21.4 Non-ST elevation (NSTEMI) myocardial infarction; J96.01 Acute respiratory failure with hypoxia; E87.1 Hypo-osmolality and hyponatremia; I35.0 Nonrheumatic aortic (valve) stenosis; J44.9 Chronic obstructive pulmonary disease, unspecified; F17.210 Nicotine dependence, cigarettes, uncomplicated; M25.512 Pain in left shoulder; I10 Essential (primary) hypertension; E78.00 Pure hypercholesterolemia, unspecified; G25.0 Essential tremor; D64.9 Anemia, unspecified; I34.0 Nonrheumatic mitral (valve) insufficiency; I25.5 Ischemic cardiomyopathy; I25.10 Atherosclerotic heart disease of native coronary artery without angina pectoris; I27.2 Other secondary pulmonary hypertension